=== PATIENT | female | born 1945 | race Caucasian/White ===

== ENCOUNTER 2017-01-21 14:21 | Inpatient (IN) | payer OTHER ==
[~2017-01-21] VITALS: Ht 162.6 cm; Wt 71.2 kg
[~2017-01-21 14:21] MED LIST: ATOR-22 PO; GLC500 PO; GLIM1TAB PO; HYDR12.56 PO; LISI40TA PO; METO-551 PO; MIRT15TA2 PO; VENL150C56 PO
[2017-01-21 15:11] LABS: URINE APPEARANCE CLEAR (CLEAR); URINE BILIRUBIN NEG (NEG); URINE COLOR YELLOW; URINE EPITHELIAL CELL AUTO >30 /lpf (0-5); URINE NITRITE NEG (NEG); UROBILINOGEN NEG (NEG)
[2017-01-21 15:12] LABS: MANUAL MICROSCOPIC REQUIRED? NO; REVIEW REQ? NO
[2017-01-21 15:29] LABS: BENZODIAZEPINE, URINE NEG (NEG); COCAINE,URINE NEG (NEG); PHENCYCLIDINE, URINE NEG (NEG)
--- NOTE | 2017-01-21 15:37 | EMERGENCY ROOM VISIT NOTE ---
History Report prepared by Bhavna: Maria De Jesus Wilks Under the Supervision of: Dr. Hilario Long D.O. First contact with patient: 14:53 Chief Complaint: MENTAL HEALTH EVALUATION Stated Complaint: DEPRESSION History of Present Illness The patient is a 71 year old female who presents to the Emergency Room with complaints of worsening depression starting 1.5 months ago ago. The patient has a history of depression. She has had inpatient care for her depression before. Her depression began worsening 1.5 months ago when she started having problems with diarrhea. She felt like she had to stay at home in case she had an accident. Her diarrhea has improved. For the past 3 days, she has not been taking any of her medications or eating. She states that she just does not feel like it. She has a history of hypertension, diabetes, depression, and high cholesterol for which she takes medications. Her therapist sent her here over concerns of inability to function. She denies any thoughts of hurting herself. She just feels depressed. She is sleeping 3.5-4 hours a night. She lives alone. She denies any history of thyroid problems. She has lost some weight. Source of History: patient, family Onset: 1.5 months ago Position: other (global) Quality: other (depression) Timing: worsening Associated Symptoms: + diarrhea Note: Pt reports not eating, not taking medications, weight loss. Pt denies thoughts of hurting herself. Review of Systems See HPI for pertinent positives & negatives. A total of 10 systems reviewed and were otherwise negative. Past Medical & Surgical Medical Problems: (1) Breast cancer (2) Depression (3) Depression with suicidal ideation (4) Diab Francesca Wo Compl, Type Ii Or Unspec Type, Not Uncntrld (5) HX OF BREAST MALIGNANCY (6) Hyperlipidemia Nec/Nos (7) HYPERTENSION NOS (8) Hypokalemia (9) Major depressive disorder (10) Major depressive disorder, recurrent episode, severe (11) Mood disorder (12) Overdose (13) Suicidal ideation (14) Suicidal ideation Surgical Problems: (1) Hx of hysterectomy (2) Unilateral radical mastectomy Family History Diabetes mellitus Social History Smoking Status: Never Smoker Alcohol Use: none Drug Use: none Housing Status: lives alone Current/Historical Medications Scheduled Atorvastatin (Lipitor), 20 MG PO QPM Glimepiride (Amaryl), 1 MG PO BID Hydrochlorothiazide (Hctz), 12.5 MG PO DAILY Lisinopril (Zestril), 40 MG PO QAM Metformin HCl (Metformin HCl), 1,000 MG PO BID Metoprolol Tartrate (Lopressor), 50 MG PO BID Mirtazapine Soltab (Remeron Soltab), 15 MG PO HS Venlafaxine Hcl (Effexor Extended Rel), 300 MG PO QAM Allergies Coded Allergies: No Known Allergies (Verified , 01/21/17) Physical Exam Vital Signs Date Time Temp Pulse Resp B/P (MAP) Pulse Ox O2 Delivery O2 Flow Rate FiO2 01/21/17 16:53 81 16 148/87 98 Room Air 01/21/17 15:45 79 18 99 Room Air 01/21/17 14:34 36.8 74 20 154/81 98 Room Air Physical Exam GENERAL: Patient is awake, alert, non anxious appearing. EYES: The conjunctivae are clear. The pupils are round and reactive. EARS, NOSE, MOUTH AND THROAT: The nose is without any evidence of any deformity. Mucous membranes are moist tongue is midline NECK: The neck is nontender and supple. RESPIRATORY: Normal respiratory effort is noted there is no evidence of wheezing rhonchi or rales CARDIOVASCULAR: Regular rate and rhythm noted there no murmurs rubs or gallops normal S1 normal S2 GASTROINTESTINAL: The abdomen is soft. Bowel sounds are present in all quadrants. Abdomen is nontender MUSCULOSKELETAL/EXTREMITIES: There is no evidence of gross deformity full range of motion is noted in the hips and shoulders SKIN: There is pedal edema bilaterally. NEUROLOGIC: Patient is awake alert and oriented x3 strength is symmetric patellar reflexes are 2+ bilaterally PSYCH: Awake and alert. Affect was flat. Makes poor eye contact. Currently denying any SI. Medical Decision & Procedures Laboratory Results 01/21/17 15:27 Red Blood Count 4.74, Mean Corpuscular Volume 92.2, Mean Corpuscular Hemoglobin 32.7, Mean Corpuscular Hemoglobin Concent 35.5, Mean Platelet Volume 10.4, Neutrophils (%) (Auto) 79.4, Lymphocytes (%) (Auto) 13.2, Monocytes (%) (Auto) 6.5, Eosinophils (%) (Auto) 0.5, Basophils (%) (Auto) 0.2, Neutrophils # (Auto) 7.67, Lymphocytes # (Auto) 1.28, Monocytes # (Auto) 0.63, Eosinophils # (Auto) 0.05, Basophils # (Auto) 0.02 01/21/17 15:27 Test 01/21/17 14:50 01/21/17 15:27 Urine Color YELLOW Urine Appearance CLEAR (CLEAR) Urine pH 7.0 (4.5-7.5) Urine Specific [place] 1.030 (1.000-1.030) Urine Protein NEG (NEG) Urine Glucose (UA) 3+ (NEG) Urine Ketones 1+ (NEG) Urine Occult Blood NEG (NEG) Urine Nitrite NEG (NEG) Urine Bilirubin NEG (NEG) Urine Urobilinogen NEG (NEG) Urine Leukocyte Esterase SMALL (NEG) Urine WBC (Auto) 5-10 /hpf (0-5) Urine RBC (Auto) 0-4 /hpf (0-4) Urine Hyaline Casts (Auto) 0 /lpf (0-5) Urine Epithelial Cells (Auto) >30 /lpf (0-5) Urine Bacteria (Auto) NEG (NEG) Urine Opiates Screen NEG (NEG) Urine Methadone, Qualitative NEG (NEG) Urine Barbiturates NEG (NEG) Urine Phencyclidine (PCP) Level NEG (NEG) Ur Amphetamine/Methamphetamine NEG (NEG) MDMA (Ecstasy) Screen NEG (NEG) Urine Benzodiazepines Screen NEG (NEG) Urine Cocaine Metabolite NEG (NEG) Urine Marijuana (THC) NEG (NEG) White Blood Count 9.67 K/uL (4.8-10.8) Red Blood Count 4.74 M/uL (4.2-5.4) Hemoglobin 15.5 g/dL (12.0-16.0) Hematocrit 43.7 % (37-47) Mean Corpuscular Volume 92.2 fL (80-100) Mean Corpuscular Hemoglobin 32.7 pg (25-34) Mean Corpuscular Hemoglobin Concent 35.5 g/dl (32-36) Platelet Count 258 K/uL (130-400) Mean Platelet Volume 10.4 fL (7.4-10.4) Neutrophils (%) (Auto) 79.4 % Lymphocytes (%) (Auto) 13.2 % Monocytes (%) (Auto) 6.5 % Eosinophils (%) (Auto) 0.5 % Basophils (%) (Auto) 0.2 % Neutrophils # (Auto) 7.67 K/uL (1.4-6.5) Lymphocytes # (Auto) 1.28 K/uL (1.2-3.4) Monocytes # (Auto) 0.63 K/uL (0.11-0.59) Eosinophils # (Auto) 0.05 K/uL (0-0.5) Basophils # (Auto) 0.02 K/uL (0-0.2) RDW Standard Deviation 44.2 fL (36.4-46.3) RDW Coefficient of Variation 13.2 % (11.5-14.5) Immature Granulocyte % (Auto) 0.2 % Immature Granulocyte # (Auto) 0.02 K/uL (0.00-0.02) Anion Gap 11.0 mmol/L (3-11) Est Creatinine Clear Calc Drug Dose 41.4 ml/min Estimated GFR () 52.8 Estimated GFR (Non- 45.6 BUN/Creatinine Ratio 16.8 (10-20) Calcium Level 9.6 mg/dl (8.5-10.1) Total Bilirubin 0.9 mg/dl (0.2-1) Direct Bilirubin 0.2 mg/dl (0-0.2) Aspartate Amino Transf (AST/SGOT) 24 U/L (15-37) Alanine Aminotransferase (ALT/SGPT) 33 U/L (12-78) Alkaline Phosphatase 63 U/L (45-117) Total Protein 7.8 gm/dl (6.4-8.2) Albumin 3.8 gm/dl (3.4-5.0) Beta-Hydroxybutyric Acid 3.78 mg/dL (0.2-2.81) Thyroid Stimulating Hormone (TSH) 2.130 uIu/ml (0.300-4.500) Free Thyroxine 1.15 ng/dl (0.80-1.60) Ethyl Alcohol mg/dL < 3.0 mg/dl (0-3) Laboratory results per my review. Medications Administered Medications (Trade) Dose Ordered Sig/Mary Route Start Time Stop Time Status Last Admin Dose Admin Atorvastatin Calcium (Lipitor Tab) 20 mg ONE STAT PO 01/21/17 16:18 01/21/17 16:21 DC 01/21/17 16:54 20 MG Metoprolol Tartrate (Lopressor Tab) 50 mg NOW STAT PO 01/21/17 16:18 01/21/17 16:21 DC 01/21/17 16:55 50 MG Glimepiride (Amaryl Tab) 1 mg NOW ONCE PO 01/21/17 16:30 01/21/17 16:31 DC 01/21/17 16:55 1 MG Metformin HCl (Glucophage Tab) 1,000 mg ONE STAT PO 01/21/17 16:18 01/21/17 16:21 DC 01/21/17 16:55 1,000 MG Potassium Chloride (Klor-Con M10) 10 meq NOW STAT PO 01/21/17 16:32 01/21/17 16:33 DC 01/21/17 16:55 10 MEQ ED Course 1459: The patient was evaluated in room A7. A complete history and physical examination were performed. 1618: Metformin HCl 1000 mg PO, Lopressor Tab 50 mg PO, Lipitor Tab 20 mg PO. 1630: Amaryl Tab 1 mg PO. 1632: Potassium Chloride 10 meq PO. 190: The patient has been accepted to [address] [place] [address]. Medical Decision Prior records/ancillary studies reviewed. Triage Nursing notes reviewed. Additional history obtained from son. The patient's history was concerning for possible psychiatric disturbance. Differential diagnosis: Etiologies such as mood disorder, infection, hypoglycemia, electrolyte abnormalities, cardiac sources, intracerebral event, toxicologic, neurologic, as well as others were entertained. The patient is a 71-year-old female who presented to emergency department for a mental health evaluation. The patient has had similar symptoms the past but appears very withdrawn. She has stopped taking her medications. She's been having very significant depression symptoms. She was seen in our facility recently for similar complaints and did not meet criteria for inpatient management. She follow-up with her primary therapist and was sent to the emergency department today by the therapist for worsening of symptoms. The patient was medically cleared in the emergency department. She was treated with her outpatient medications. She was evaluated by the emergency Department mental health case assembler and then seen by [address] [place] [address]. She was felt to be a good candidate for a [address] [place] [address] admission. Medication Reconcilliation Current Medication List: was personally reviewed by me Blood Pressure Screening Patient's blood pressure: Elevated blood pressure Blood pressure disposition: Elevated BP felt to be situational (medication noncompliance) Impression Primary Impression: Depression Additional Impressions: Hyperglycemia Noncompliance with medications Scribe Attestation The scribe's documentation has been prepared under my direction and personally reviewed by me in its entirety. I confirm that the note above accurately reflects all work, treatment, procedures, and medical decision making performed by me. Departure Information Dispostion Mental Health Acute Care Referrals Richardson Mcmillan M.D. (PCP) Patient Instructions My [facility] Problem Qualifiers
[2017-01-21 15:44] LABS: BASO % 0.2 %; BASO ABS # 0.02 K/uL (0-0.2); COMPLETE YES; EOS % 0.5 %; HEMATOCRIT 43.7 % (37-47); IG% 0.2 %; LYMPH % 13.2 %; LYMPH ABS # 1.28 K/uL (1.2-3.4); MEAN CELL VOLUME 92.2 fL (80-100); MEAN CORPUSCULAR HEMOGLOBIN 32.7 pg (25-34); MEAN CORPUSCULAR HGB CONC 35.5 g/dl (32-36); MEAN PLATELET VOLUME 10.4 fL (7.4-10.4); MONO % 6.5 %; NEUT % 79.4 %; PLATELET COUNT 258 K/uL (130-400); RED BLOOD COUNT 4.74 M/uL (4.2-5.4); WHITE BLOOD COUNT 9.67 K/uL (4.8-10.8)
[2017-01-21 16:02] LABS: BUN/CREATININE RATIO 16.8 (10-20); CALCIUM 9.6 mg/dl (8.5-10.1); CREATININE 1.19 mg/dl (0.60-1.20)
[2017-01-21 16:13] LABS: BETA-HYDROXYBUTYRATE 3.78 mg/dL (0.2-2.81); THYROID STIMULATING HORMONE 2.13 uIu/ml (0.300-4.500)
[2017-01-21] MEDS ORDERED: ATORVASTATIN 20 MG TAB PO STA (16:18)
[2017-01-21] MEDS ORDERED: HYDROCHLOROTHIAZIDE 25 MG TAB PO STA (16:18)
[2017-01-21] MEDS ORDERED: LISINOPRIL 20 MG TAB PO STA (16:18)
[2017-01-21] MEDS ORDERED: METFORMIN HCL 500 MG TAB PO STA (16:18)
[2017-01-21] MEDS ORDERED: VENLAFAXINE HCL XR 150 MG CAPXR PO STA (16:18)
[2017-01-21] MEDS ORDERED: METOPROLOL TARTRATE 50 MG TAB PO STA (16:18)
[2017-01-21] MEDS ORDERED: GLIMEPIRIDE 2 MG TAB PO ONE (16:30)
[2017-01-21] MEDS ORDERED: POTASSIUM CHLORIDE 10 MEQ TABCR PO STA (16:32)
[2017-01-21] MEDS ORDERED: ACETAMINOPHEN 325 MG TAB PO PRN (19:00)
[2017-01-21] MEDS ORDERED: SODIUM CHLORIDE 0.65% NA SOLN 45 ML (OCEAN) PRN (19:00)
[2017-01-21] MEDS ORDERED: ALUMINUM/MAGNESIUM SUSP 30 ML UDC PO PRN (19:00)
[2017-01-21] MEDS ORDERED: MAGNESIUM HYDROXIDE SUSP 30 ML UDC PO PRN (19:00)
[2017-01-21] MEDS ORDERED: hydrOXYzine HCL 25 MG TAB PO PRN ×2 (19:00)
[2017-01-21 19:07] VITALS: O2SAT 98
[2017-01-21 19:49] VITALS: BP 141/89; PULSE 81; TEMP 36.7; BMI 26.9
[2017-01-21] MEDS: MIRTAZAPINE SOLTAB 15 MG PO SCH (21:39)
[2017-01-21] MEDS: ATORVASTATIN 20 MG TAB PO SCH (21:42)
[2017-01-21] MEDS: METOPROLOL TARTRATE 50 MG TAB PO SCH (21:42)
[2017-01-21 21:47] VITALS: BP 149/88; PULSE 81
[2017-01-22 07:04] VITALS: BP_SYST 111; BP_SYST 138; BP_DIAS 73; BP_DIAS 90; PULSE 89; PULSE 94; TEMP 36.5
[2017-01-22] MEDS: VENLAFAXINE HCL XR 150 MG CAPXR PO SCH (08:58)
[2017-01-22] MEDS: GLIMEPIRIDE 2 MG TAB PO SCH ×2 (08:58→17:33)
[2017-01-22] MEDS: METFORMIN HCL 500 MG TAB PO SCH ×2 (08:59→17:32)
[2017-01-22] MEDS: HYDROCHLOROTHIAZIDE 25 MG TAB PO SCH (08:59)
[2017-01-22] MEDS: METOPROLOL TARTRATE 50 MG TAB PO SCH ×2 (08:59→21:26)
[2017-01-22] MEDS: LISINOPRIL 40 MG TAB PO SCH (09:00)
[2017-01-22] MEDS: BISMUTH SUBSALICYLATE PER ML OMNICELL CHARGE PO PRN ×2 (10:00→19:34)
[2017-01-22 12:11] VITALS: BP 143/84; PULSE 74; TEMP 36.6
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
[2017-01-22] MEDS ORDERED: ARIPIprazole TAB 5 MG TAB PO ONE (12:30)
[2017-01-22 15:40] VITALS: BP 122/88; PULSE 90
[2017-01-22 16:22] VITALS: Ht 162.6 cm; Wt 71.2 kg
[2017-01-22 21:26] VITALS: BP 125/79; PULSE 93
[2017-01-22] MEDS: MIRTAZAPINE SOLTAB 15 MG PO SCH (21:26)
[2017-01-22] MEDS: ATORVASTATIN 20 MG TAB PO SCH (21:26)
[2017-01-23 06:45] VITALS: BP_SYST 106; BP_SYST 118; BP_DIAS 69; BP_DIAS 77; PULSE 71; PULSE 74; TEMP 36.7
[2017-01-23 08:16] LABS: POTASSIUM 2.9 mmol/L (3.5-5.1)
[2017-01-23 08:22] LABS: CHOLESTEROL/HDL RATIO 2.7
[2017-01-23] MEDS: ARIPIprazole TAB 5 MG TAB PO SCH (08:38)
[2017-01-23] MEDS: VENLAFAXINE HCL XR 150 MG CAPXR PO SCH (08:39)
[2017-01-23] MEDS: GLIMEPIRIDE 2 MG TAB PO SCH ×2 (08:39→17:24)
[2017-01-23] MEDS: METFORMIN HCL 500 MG TAB PO SCH ×2 (08:40→17:24)
[2017-01-23] MEDS: HYDROCHLOROTHIAZIDE 25 MG TAB PO SCH ×2 (08:40→09:04)
[2017-01-23] MEDS: LISINOPRIL 40 MG TAB PO SCH ×2 (08:42→09:03)
[2017-01-23] MEDS: METOPROLOL TARTRATE 50 MG TAB PO SCH ×2 (08:42→21:20)
[2017-01-23 08:48] VITALS: BP 125/82; PULSE 74
[2017-01-23] MEDS ORDERED: POTASSIUM CHLORIDE 20 MEQ TABCR PO ONE (12:15)
--- NOTE | 2017-01-23 13:37 | Psychiatric Progress Notes ---
Progress Note Date of Service Jan 23, 2017. Interval History 71-year-old woman with a long history of depression and, in deterioration for the last several months, now unable to function outside of a structured environment. She has resisted the idea that she was depressed, preferring to see herself as bored, but now recognizes that having not showered taking her meds, or eat for 3 days clearly indicates depression. Chief Complaint "OK". Subjective Patient was seen & assessed interval progress reviewed with Treatment Team. She has just come from a phone meeting with her son Reid, during which they discussed her depression, her inability to get herself out of the house when depressed, and her relationship with her daughter Tracey. Monserrat thinks that she will try to see if there is a [employer] office in [place] to inquire about volunteering. She started Abilify yesterday and denies any side effects. She believes that her relationship with her daughter is a big part of her depression saying that it hurts that she isn't allowed to go visit Tracey at her home ([place]). She wants to be closer with her, but Tracey puts up barriers and has not sought treatment for her own issues. Monserrat recognizes this and knows that she treats other family members the same, but that its especially difficult for her as the mother. Her son Reid is very warm and inviting, but Monserrat says that Tracey has always accused her of treating Reid differently, better, which Monserrat denies. They are still hopeful that Reid can get in touch with Monserrat and invite her in for a family meeting as well. Informed patient of low K, and intent to supplement. She denies SI, and is making every effort to stay out of her room and participate in programming. Review of Systems Constitutional: No fever, No chills, No sweats, No weight loss, No weakness, No fatigue, No problem reported ENT: No hearing loss, No unusual epistaxis, No nasal symptoms, No sore throat, No tinnitus, No dental problems, No trouble swallowing, No problem reported Respiratory: + problem reported (rhinorrhea when eating) Cardiovascular: No chest pain, No orthopnea, No PND, No edema, No claudication , No palpitations, No problem reported Abdomen: No pain, No nausea, No vomiting, No diarrhea, No constipation, No GI bleeding, No problem reported Musculoskeletal: No joint pain, No muscle pain, No swelling, No calf pain, No problem reported Neurologic: No memory loss, No paralysis, No weakness, No numbness/tingling, No vertigo, No balance problems, No problem reported Psychiatric: + depression symptoms Integumentary: No rash, No itch, No new/changing skin lesions, No color change , No bleeding, No problem reported Sleep Information Total Hours of Sleep: 6.00 Meal Information Percent of Breakfast Consumed: 100 Percent of Lunch Consumed: 80 Percent of Dinner Consumed: 100 Mental Status Exam During interview pt is: alert and oriented, cooperative Appearance: appropriately dressed, appropriately groomed Eye contact is: good Motor behavior is: steady gait & station, no abnormal motor movements Speech: normal in rate, rhythm & volume Affect: depressed, blunted Mood is: depressed Thought process: goal directed Thought content: reality based without delusions Suicidal thought are: denied Homicidal thoughts are: denied Hallucinations: denies auditory, denies visual Cognition: memory grossly intact, attention grossly intact, language grossly intact Intelligence estimated to be: average Insight: impaired Judgement: impaired Impression Although not acutely suicidal, she has deteriorated to the point of being unable to function with out the structure of the inpatient unit. Is tolerating the addition of abilify and will hopefully increase to 5 mg. over the weekend. We will work toward a family meeting with daughter Tracey, as this is a large part of patient's sadness. In view of previous serious and premeditated overdoses, will recommend ongoing stay until we see significant improvement to mood, motivation and anhedonia. Plan (1) Major depressive disorder, recurrent episode, severe 01/22 - Continue Effexor XR 300 mg daily - Continue Remeron 15 mg at bedtime - Start Abilify 2.5 mg daily - Family meeting with children - Recommend therapy post discharge - Encourage participation in group and individual counseling - Every 15 minute checks for safety - FLP and FBS for monitoring on atypicals (2) Hypokalemia 01/22 - Patient has not been eating and potassium low at 3.0 and was given potassium in the ED. Will repeat potassium tomorrow and may need chronic supplementation in view of hydrochlorothiazide therapy 01/23 - K 2.9 today - Give KCl 40 meq now and 20 meq daily - Repeat K on Thursday - EKG (3) Hypertension 01/22 - monitor BP's - Continue home antihypertensives (4) Hyperglycemia 01/22 - Continue home dosing of metformin and glimepiride - BSG's daily Discharge / Aftercare Planning Primary Care Physician: Name: Dr. Mcmillan Psychiatrist: Name: [facility] Therapist: Name: Nydia GUADARRAMA, [facility] Visit Code E&M Code: 26594 Inventory Assets Strengths: Willingness to engage in treatment, support from family Needs: Medication compliance Risk Factors Assessment : Yes /single/: Yes Higher / Fall in social status: No Health problems: Yes Mental Health Diagnoses: Yes Substance use disorders: No Previous attempt: Yes Previous attempt;highly lethal: Yes Previous attempt; planned: Yes Family history of suicide: No Previous psychiatric stay: Yes Hopelessness: No Smoker: No Protective Factors Assessment Cheondoism beliefs: Yes : No Responsible for young children: No Employed: No Stable relationships: No Supportive family: Yes Good rapport with provider: Yes Data Vital Signs Last 24 Hrs: Date Time Temp Pulse Resp B/P (MAP) Pulse Ox O2 Delivery O2 Flow Rate FiO2 01/23/17 08:48 74 125/82 01/23/17 06:45 36.7 71 16 106/69 74 118/77 01/22/17 21:26 93 18 125/79 01/22/17 15:40 90 122/88 Meds Administered Last 24 Hrs: Meds Administered (Past 24Hrs) Medications (Trade) Dose Ordered Sig/Mary Route Start Time Stop Time Status Last Admin Dose Admin Atorvastatin Calcium (Lipitor Tab) 20 mg ONE STAT PO 01/21/17 16:18 01/21/17 16:21 DC 01/21/17 16:54 20 MG Metoprolol Tartrate (Lopressor Tab) 50 mg NOW STAT PO 01/21/17 16:18 01/21/17 16:21 DC 01/21/17 16:55 50 MG Glimepiride (Amaryl Tab) 1 mg NOW ONCE PO 01/21/17 16:30 01/21/17 16:31 DC 01/21/17 16:55 1 MG Metformin HCl (Glucophage Tab) 1,000 mg ONE STAT PO 01/21/17 16:18 01/21/17 16:21 DC 01/21/17 16:55 1,000 MG Potassium Chloride (Klor-Con M10) 10 meq NOW STAT PO 01/21/17 16:32 01/21/17 16:33 DC 01/21/17 16:55 10 MEQ Bismuth Subsalicylate (Kaopectate Liqd) 15 ml PRN PRN PO 01/21/17 19:00 02/20/17 18:59 01/22/17 19:34 15 ML Atorvastatin Calcium (Lipitor Tab) 20 mg QPM PO 01/21/17 21:00 02/20/17 20:59 01/22/17 21:26 20 MG Glimepiride (Amaryl Tab) 1 mg BIDM PO 01/22/17 09:00 02/21/17 08:59 01/23/17 08:39 1 MG Hydrochlorothiazide (Hydrochlorothiazide Tab) 12.5 mg DAILY PO 01/22/17 09:00 02/21/17 08:59 01/23/17 09:04 12.5 MG Lisinopril (Zestril Tab) 40 mg QAM PO 01/22/17 09:00 02/21/17 08:59 01/23/17 09:03 40 MG Metformin HCl (Glucophage Tab) 1,000 mg BIDM PO 01/22/17 09:00 02/21/17 08:59 01/23/17 08:40 1,000 MG Metoprolol Tartrate (Lopressor Tab) 50 mg BID PO 01/21/17 21:00 02/20/17 20:59 01/23/17 08:42 50 MG Venlafaxine HCl (effeXOR EXTENDED REL CAP) 300 mg QAM PO 01/22/17 09:00 02/21/17 08:59 01/23/17 08:39 300 MG Mirtazapine (Remeron Solutab) 15 mg HS PO 01/21/17 21:00 02/20/17 20:59 01/22/17 21:26 15 MG Aripiprazole (Abilify Tab) 2.5 mg QAM PO 01/23/17 09:00 02/22/17 08:59 01/23/17 08:38 2.5 MG Aripiprazole (Abilify Tab) 2.5 mg 1230 ONCE PO 01/22/17 12:30 01/22/17 12:31 DC 01/22/17 12:46 2.5 MG Potassium Chloride (Klor-Con Tab) 40 meq 1215 ONCE PO 01/23/17 12:15 01/23/17 12:16 DC 01/23/17 13:19 40 MEQ Lab Results Last 24 Hrs: Last 24 Hours Test 01/22/17 16:56 01/22/17 20:38 01/23/17 06:59 01/23/17 08:05 Bedside Glucose 194 mg/dl 194 mg/dl 151 mg/dl Potassium Level 2.9 mmol/L Fasting Glucose 150 mg/dl Triglycerides Level 167 mg/dl Cholesterol Level 111 mg/dl HDL Cholesterol 41 mg/dl LDL Cholesterol, Calculated 37 mg/dl VLDL Cholesterol, Calculated 33 mg/dl Cholesterol/HDL Ratio 2.7
[2017-01-23] MEDS: BISMUTH SUBSALICYLATE PER ML OMNICELL CHARGE PO PRN (15:42)
[2017-01-23] MEDS: ATORVASTATIN 20 MG TAB PO SCH (21:20)
[2017-01-23] MEDS: MIRTAZAPINE SOLTAB 15 MG PO SCH (21:20)
[2017-01-23 22:14] VITALS: BP 125/79; PULSE 88
[2017-01-24 06:42] VITALS: BP_SYST 101; BP_SYST 134; BP_DIAS 67; BP_DIAS 74; PULSE 75; PULSE 77; TEMP 36.6
[2017-01-24] MEDS: VENLAFAXINE HCL XR 150 MG CAPXR PO SCH (09:00)
[2017-01-24] MEDS: METOPROLOL TARTRATE 50 MG TAB PO SCH ×2 (09:00→21:55)
[2017-01-24] MEDS: ARIPIprazole TAB 5 MG TAB PO SCH (09:00)
[2017-01-24] MEDS: GLIMEPIRIDE 2 MG TAB PO SCH ×2 (09:00→18:03)
[2017-01-24] MEDS: POTASSIUM CHLORIDE 20 MEQ TABCR PO SCH (09:01)
[2017-01-24] MEDS: METFORMIN HCL 500 MG TAB PO SCH ×2 (09:01→18:02)
[2017-01-24] MEDS: HYDROCHLOROTHIAZIDE 25 MG TAB PO SCH (09:01)
[2017-01-24] MEDS: LISINOPRIL 40 MG TAB PO SCH (09:01)
--- NOTE | 2017-01-24 13:19 | Psychiatric Progress Notes ---
Progress Note Date of Service Jan 24, 2017. Interval History 71-year-old woman with a long history of depression and, in deterioration for the last several months, now unable to function outside of a structured environment. She has resisted the idea that she was depressed, preferring to see herself as bored, but now recognizes that having not showered taking her meds, or eat for 3 days clearly indicates depression. Chief Complaint "Doing better". Subjective Patient was seen & assessed interval progress reviewed with Nursing. Staff report she is improving, performs the ADLs independently, and treatment. The patient states that her mood is "doing better, more alert." She denies any side effects to aripiprazole. She rates her mood as 6 out of 10, and her goal is to keep going to groups and talking about her stressors. Sleep and appetite are both improving, she is hopeful to be able to have a meeting with her daughter on Thursday. She denies suicidal thoughts. Review of Systems Dizziness that has been going on for about a week, typically occurs when she stands up from lying or seated positions. Sleep Information Total Hours of Sleep: 6.75 Meal Information Percent of Breakfast Consumed: 95 Percent of Lunch Consumed: 100 Percent of Dinner Consumed: 65 Mental Status Exam During interview pt is: alert and oriented, cooperative Appearance: appropriately dressed, appropriately groomed Eye contact is: good Motor behavior is: steady gait & station, no abnormal motor movements Speech: normal in rate, rhythm & volume Affect: depressed, other (but reactive and appropriate) Mood is: other ("better") Thought process: goal directed Thought content: reality based without delusions Suicidal thought are: denied Homicidal thoughts are: denied Hallucinations: denies auditory, denies visual Cognition: memory grossly intact, attention grossly intact, language grossly intact Intelligence estimated to be: average Insight: impaired Judgement: impaired Impression Although not acutely suicidal, she has deteriorated to the point of being unable to function with out the structure of the inpatient unit. She tolerating the addition of Abilify and will increase to 5 mg daily. We will work toward a family meeting with daughter Tracey, as this is a large part of patient's sadness. In view of previous serious and premeditated overdoses, will recommend ongoing stay until we see significant improvement to mood, motivation and anhedonia. Plan (1) Major depressive disorder, recurrent episode, severe 01/22 - Continue Effexor XR 300 mg daily - Continue Remeron 15 mg at bedtime - Start Abilify 2.5 mg daily - Family meeting with children - Recommend therapy post discharge - Encourage participation in group and individual counseling - Every 15 minute checks for safety - FLP and FBS for monitoring on atypicals 01/24 - Increase aripiprazole to 5 mg daily. - Reviewed fasting labs: Glucose elevated at 150, and triglycerides of 167; remainder of FLP was normal. (2) Hypokalemia 01/22 - Patient has not been eating and potassium low at 3.0 and was given potassium in the ED. Will repeat potassium tomorrow and may need chronic supplementation in view of hydrochlorothiazide therapy 01/23 - K 2.9 today - Give KCl 40 meq now and 20 meq daily - Repeat K on Thursday - EKG (3) Hypertension 01/22 - monitor BP's - Continue home antihypertensives (4) Hyperglycemia 01/22 - Continue home dosing of metformin and glimepiride - BSG's daily Discharge / Aftercare Planning Primary Care Physician: Name: Dr. Mcmillan Psychiatrist: Name: Kamla KUHN-[facility] Therapist: Name: Nydia GUADARRAMA, [employer] Visit Code E&M Code: 46487 Inventory Assets Strengths: Willingness to engage in treatment, support from family Needs: Medication compliance Risk Factors Assessment : Yes /single/: Yes Higher / Fall in social status: No Health problems: Yes Mental Health Diagnoses: Yes Substance use disorders: No Previous attempt: Yes Previous attempt;highly lethal: Yes Previous attempt; planned: Yes Family history of suicide: No Previous psychiatric stay: Yes Hopelessness: No Smoker: No Protective Factors Assessment Jainism beliefs: Yes : No Responsible for young children: No Employed: No Stable relationships: No Supportive family: Yes Good rapport with provider: Yes Data Vital Signs Last 24 Hrs: Date Time Temp Pulse Resp B/P (MAP) Pulse Ox O2 Delivery O2 Flow Rate FiO2 01/24/17 06:42 36.6 75 18 101/67 77 134/74 01/23/17 22:14 88 18 125/79 Meds Administered Last 24 Hrs: Meds Administered (Past 24Hrs) Medications (Trade) Dose Ordered Sig/Mary Route Start Time Stop Time Status Last Admin Dose Admin Aripiprazole (Abilify Tab) 2.5 mg QAM PO 01/23/17 09:00 02/22/17 08:59 01/24/17 09:00 2.5 MG Potassium Chloride (Klor-Con Tab) 20 meq QAM PO 01/24/17 09:00 02/23/17 08:59 01/24/17 09:01 20 MEQ Potassium Chloride (Klor-Con Tab) 40 meq 1215 ONCE PO 01/23/17 12:15 01/23/17 12:16 DC 01/23/17 13:19 40 MEQ Lab Results Last 24 Hrs: Last 24 Hours Test 01/23/17 17:15 01/23/17 21:14 01/24/17 07:55 01/24/17 12:12 Bedside Glucose 112 mg/dl 106 mg/dl 169 mg/dl 213 mg/dl
[2017-01-24 14:23] VITALS: BP 116/75; PULSE 80
[2017-01-24 21:31] VITALS: BP 122/80; PULSE 79
[2017-01-24] MEDS: MIRTAZAPINE TAB 15 MG TAB PO SCH (21:55)
[2017-01-24] MEDS: ATORVASTATIN 20 MG TAB PO SCH (21:55)
[2017-01-25 06:49] VITALS: BP_SYST 122; BP_SYST 140; BP_DIAS 75; BP_DIAS 78; PULSE 64; PULSE 74; TEMP 36
--- NOTE | 2017-01-25 08:00 | Psychiatric Progress Notes ---
Progress Note Date of Service Jan 25, 2017. Interval History 71-year-old woman with a long history of depression and, in deterioration for the last several months, now unable to function outside of a structured environment. She has resisted the idea that she was depressed, preferring to see herself as bored, but now recognizes that having not showered taking her meds, or eat for 3 days clearly indicates depression. Chief Complaint "Getting better". Subjective Patient was seen & assessed interval progress reviewed with Nursing. Staff report she has not been able to get in touch with her daughter, as she wants to have a meeting with her Thursday. She is attending to ADLs and affect is improving. Today she reports that mood is improving, rates it a 7 out of 10, and had a good visit with her sister and friend. She was able to talk to her daughter last night, and she has to be out of town Thu - Thu for training, so is not available for a meeting. She is planning to visit today, and patient was hoping they could have a meeting to talk about "the times when we clash, don't get along or agree on things." She says her daughter "thinks she needs to make all the decisions for me," for example when they went on trip, her daughter made all the arrangements based on what she wanted to do, without asking Monserrat. She has had a hard time talking to her daughter about it, "it has to be her way or the highway." She denies side effects to Abilify. She is trying to think of ways to get out of the house more and not isolate once she goes home. She is thinking of contacting the [employer] to look into volunteer positions. 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 Sleep Information Total Hours of Sleep: 6.25 Meal Information Percent of Breakfast Consumed: 95 Percent of Lunch Consumed: 90 Percent of Dinner Consumed: 80 Mental Status Exam During interview pt is: alert and oriented, cooperative Appearance: appropriately dressed, appropriately groomed Eye contact is: good Motor behavior is: steady gait & station, no abnormal motor movements Speech: normal in rate, rhythm & volume Affect: depressed (but reactive, appropriate) Mood is: other ("better") Thought process: goal directed Thought content: reality based without delusions Suicidal thought are: denied Homicidal thoughts are: denied Hallucinations: denies auditory, denies visual Cognition: memory grossly intact, attention grossly intact, language grossly intact Intelligence estimated to be: average Insight: impaired Judgement: impaired Impression Although not acutely suicidal, she has deteriorated to the point of being unable to function with out the structure of the inpatient unit. She is tolerating the addition of Abilify. We have recommended a family meeting with daughter Tracey, as this is a large part of patient's sadness, but she will be unavailable Thu-Thu due to work, so will see if staff are available today to meet with patient and her daughter when she visits. In view of previous serious and premeditated overdoses, will recommend ongoing stay until we see significant improvement to mood, motivation and anhedonia. Plan (1) Major depressive disorder, recurrent episode, severe 01/22 - Continue Effexor XR 300 mg daily - Continue Remeron 15 mg at bedtime - Start Abilify 2.5 mg daily - Family meeting with children - Recommend therapy post discharge - Encourage participation in group and individual counseling - Every 15 minute checks for safety - FLP and FBS for monitoring on atypicals 01/24 - Increase aripiprazole to 5 mg daily. - Reviewed fasting labs: Glucose elevated at 150, and triglycerides of 167; remainder of FLP was normal. 01/25 - Continue current meds - Daughter visiting today, will see if staff available to do family meeting, as daughter will be out of town for work this week and unavailable. - Encourage continued work on plan to increase socialization (volunteering) at home (2) Hypokalemia 01/22 - Patient has not been eating and potassium low at 3.0 and was given potassium in the ED. Will repeat potassium tomorrow and may need chronic supplementation in view of hydrochlorothiazide therapy 01/23 - K 2.9 today - Give KCl 40 meq now and 20 meq daily - Repeat K on Thursday - EKG - NSR 01/24 - K 3.6 (3) Hypertension 01/22 - monitor BP's - Continue home antihypertensives (4) Hyperglycemia 01/22 - Continue home dosing of metformin and glimepiride - BSG's daily Discharge / Aftercare Planning Primary Care Physician: Name: Dr. Mcmillan Psychiatrist: Name: Kamla KUHN-[employer] [facility] Therapist: Name: Nydia Dai THIERRY, [employer] Visit Code E&M Code: 22383 Inventory Assets Strengths: Willingness to engage in treatment, support from family Needs: Medication compliance Risk Factors Assessment : Yes /single/: Yes Higher / Fall in social status: No Health problems: Yes Mental Health Diagnoses: Yes Substance use disorders: No Previous attempt: Yes Previous attempt;highly lethal: Yes Previous attempt; planned: Yes Family history of suicide: No Previous psychiatric stay: Yes Hopelessness: No Smoker: No Protective Factors Assessment Adventist beliefs: Yes : No Responsible for young children: No Employed: No Stable relationships: No Supportive family: Yes Good rapport with provider: Yes Data Vital Signs Last 24 Hrs: Date Time Temp Pulse Resp B/P (MAP) Pulse Ox O2 Delivery O2 Flow Rate FiO2 01/25/17 06:49 36.0 64 16 122/78 74 140/75 01/24/17 21:31 79 18 122/80 01/24/17 14:23 80 14 116/75 Meds Administered Last 24 Hrs: Meds Administered (Past 24Hrs) Medications (Trade) Dose Ordered Sig/Mary Route Start Time Stop Time Status Last Admin Dose Admin Aripiprazole (Abilify Tab) 2.5 mg QAM PO 01/23/17 09:00 01/24/17 13:18 DC 01/24/17 09:00 2.5 MG Potassium Chloride (Klor-Con Tab) 20 meq QAM PO 01/24/17 09:00 02/23/17 08:59 01/24/17 09:01 20 MEQ Potassium Chloride (Klor-Con Tab) 40 meq 1215 ONCE PO 01/23/17 12:15 01/23/17 12:16 DC 01/23/17 13:19 40 MEQ Mirtazapine (Remeron Tab) 15 mg HS PO 01/24/17 22:00 02/23/17 21:59 01/24/17 21:55 15 MG Lab Results Last 24 Hrs: Last 24 Hours Test 01/24/17 12:12 01/24/17 14:16 01/24/17 17:24 01/24/17 21:08 Bedside Glucose 213 mg/dl 126 mg/dl 88 mg/dl 98 mg/dl
[2017-01-25] MEDS: METFORMIN HCL 500 MG TAB PO SCH ×2 (08:47→18:04)
[2017-01-25] MEDS: VENLAFAXINE HCL XR 150 MG CAPXR PO SCH (08:47)
[2017-01-25] MEDS: GLIMEPIRIDE 2 MG TAB PO SCH ×2 (08:47→18:05)
[2017-01-25] MEDS: ARIPIprazole TAB 5 MG TAB PO SCH (08:47)
[2017-01-25] MEDS: LISINOPRIL 40 MG TAB PO SCH (08:48)
[2017-01-25] MEDS: POTASSIUM CHLORIDE 20 MEQ TABCR PO SCH (08:48)
[2017-01-25] MEDS: HYDROCHLOROTHIAZIDE 25 MG TAB PO SCH (08:48)
[2017-01-25] MEDS: METOPROLOL TARTRATE 50 MG TAB PO SCH ×2 (08:48→21:17)
[2017-01-25 21:16] VITALS: BP 147/83; PULSE 83
[2017-01-25] MEDS: MIRTAZAPINE TAB 15 MG TAB PO SCH (21:17)
[2017-01-25] MEDS: ATORVASTATIN 20 MG TAB PO SCH (21:17)
[2017-01-26 07:09] VITALS: BP_SYST 122; BP_SYST 137; BP_DIAS 73; BP_DIAS 79; PULSE 70; PULSE 82; TEMP 36.9
[2017-01-26] MEDS: ARIPIprazole TAB 5 MG TAB PO SCH (08:23)
[2017-01-26] MEDS: VENLAFAXINE HCL XR 150 MG CAPXR PO SCH (08:24)
[2017-01-26] MEDS: GLIMEPIRIDE 2 MG TAB PO SCH ×2 (08:24→18:23)
[2017-01-26] MEDS: METOPROLOL TARTRATE 50 MG TAB PO SCH ×2 (08:25→21:20)
[2017-01-26] MEDS: METFORMIN HCL 500 MG TAB PO SCH ×2 (08:25→18:24)
[2017-01-26] MEDS: POTASSIUM CHLORIDE 20 MEQ TABCR PO SCH (08:25)
[2017-01-26] MEDS: HYDROCHLOROTHIAZIDE 25 MG TAB PO SCH (08:25)
[2017-01-26] MEDS: LISINOPRIL 40 MG TAB PO SCH (08:25)
--- NOTE | 2017-01-26 14:32 | Psychiatric Progress Notes ---
Progress Note Date of Service Jan 26, 2017. Interval History 71-year-old woman with a long history of depression and, in deterioration for the last several months, now unable to function outside of a structured environment. She has resisted the idea that she was depressed, preferring to see herself as bored, but now recognizes that having not showered taking her meds, or eat for 3 days clearly indicates depression. Chief Complaint "Going okay". Subjective Patient was seen & assessed interval progress reviewed with Treatment Team. Staff report she's going to groups and talking about her stressors. She had a meeting with her son and daughter yesterday, but still feels uncertain about how she can improve her relationship with her daughter. Her son offered to help her get into some type of exercise class, and printed out information from the [facility], but she feels self conscious. 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 Sleep and appetite are improving, and she denies SI. Sleep Information Total Hours of Sleep: 8.00 Meal Information Percent of Breakfast Consumed: 100 Percent of Lunch Consumed: 50 Percent of Dinner Consumed: 100 Mental Status Exam During interview pt is: alert and oriented, cooperative Appearance: appropriately dressed, appropriately groomed Eye contact is: good Motor behavior is: steady gait & station, no abnormal motor movements Speech: normal in rate, rhythm & volume Affect: depressed (but reactive, appropriate) Mood is: other ("better") Thought process: goal directed Thought content: reality based without delusions Suicidal thought are: denied Homicidal thoughts are: denied Hallucinations: denies auditory, denies visual Cognition: memory grossly intact, attention grossly intact, language grossly intact Intelligence estimated to be: average Insight: impaired Judgement: impaired Impression Although not acutely suicidal, she has deteriorated to the point of being unable to function with out the structure of the inpatient unit. She is tolerating the addition of Abilify. We have recommended a family meeting with daughter Tracey, as this is a large part of patient's sadness, but she will be unavailable Thu-Thu due to work, so will see if staff are available today to meet with patient and her daughter when she visits. In view of previous serious and premeditated overdoses, will recommend ongoing stay until we see significant improvement to mood, motivation and anhedonia. Plan (1) Major depressive disorder, recurrent episode, severe 01/22 - Continue Effexor XR 300 mg daily - Continue Remeron 15 mg at bedtime - Start Abilify 2.5 mg daily - Family meeting with children - Recommend therapy post discharge - Encourage participation in group and individual counseling - Every 15 minute checks for safety - FLP and FBS for monitoring on atypicals 01/24 - Increase aripiprazole to 5 mg daily. - Reviewed fasting labs: Glucose elevated at 150, and triglycerides of 167; remainder of FLP was normal. 01/25 - Continue current meds - Daughter visiting today, will see if staff available to do family meeting, as daughter will be out of town for work this week and unavailable. - Encourage continued work on plan to increase socialization (volunteering) at home (2) Hypokalemia 01/22 - Patient has not been eating and potassium low at 3.0 and was given potassium in the ED. Will repeat potassium tomorrow and may need chronic supplementation in view of hydrochlorothiazide therapy 01/23 - K 2.9 today - Give KCl 40 meq now and 20 meq daily - Repeat K on Thursday - EKG - NSR 01/24 - K 3.6 (3) Hypertension 01/22 - monitor BP's - Continue home antihypertensives (4) Hyperglycemia 01/22 - Continue home dosing of metformin and glimepiride - BSG's daily Discharge / Aftercare Planning Primary Care Physician: Name: Dr. Mcmillan Psychiatrist: Name: Kamla KUHN-[facility] Therapist: Name: Nydia GUADARRAMA, [email or web address] Visit Code E&M Code: 64648 Inventory Assets Strengths: Willingness to engage in treatment, support from family Needs: Medication compliance Risk Factors Assessment : Yes /single/: Yes Higher / Fall in social status: No Access to guns: No Health problems: Yes Mental Health Diagnoses: Yes Substance use disorders: No Previous attempt: Yes Previous attempt;highly lethal: Yes Previous attempt; planned: Yes Family history of suicide: No Previous psychiatric stay: Yes Hopelessness: No Smoker: No Protective Factors Assessment Denominational beliefs: Yes : No Responsible for young children: No Employed: No Stable relationships: No Supportive family: Yes Good rapport with provider: Yes Data Vital Signs Last 24 Hrs: Date Time Temp Pulse Resp B/P (MAP) Pulse Ox O2 Delivery O2 Flow Rate FiO2 01/26/17 07:09 36.9 70 16 122/73 82 137/79 01/25/17 21:16 83 16 147/83 Meds Administered Last 24 Hrs: Meds Administered (Past 24Hrs) Medications (Trade) Dose Ordered Sig/Mary Route Start Time Stop Time Status Last Admin Dose Admin Aripiprazole (Abilify Tab) 5 mg QAM PO 01/25/17 09:00 02/22/17 08:59 01/26/17 08:23 5 MG Mirtazapine (Remeron Tab) 15 mg HS PO 01/24/17 22:00 02/23/17 21:59 01/25/17 21:17 15 MG Lab Results Last 24 Hrs: Last 24 Hours Test 01/25/17 17:29 01/25/17 21:12 01/26/17 07:47 Bedside Glucose 128 mg/dl 120 mg/dl 113 mg/dl
[2017-01-26] MEDS: ATORVASTATIN 20 MG TAB PO SCH (21:20)
[2017-01-26] MEDS: MIRTAZAPINE TAB 15 MG TAB PO SCH (21:21)
[2017-01-26 21:23] VITALS: BP 148/84; PULSE 80
[2017-01-27 06:57] VITALS: BP_SYST 147; BP_SYST 149; BP_DIAS 80; BP_DIAS 90; PULSE 73; PULSE 76; TEMP 36.5
[2017-01-27] MEDS: ARIPIprazole TAB 5 MG TAB PO SCH (08:44)
[2017-01-27] MEDS: GLIMEPIRIDE 2 MG TAB PO SCH (08:46)
[2017-01-27] MEDS: VENLAFAXINE HCL XR 150 MG CAPXR PO SCH (08:46)
[2017-01-27] MEDS: METFORMIN HCL 500 MG TAB PO SCH (08:47)
[2017-01-27] MEDS: HYDROCHLOROTHIAZIDE 25 MG TAB PO SCH (08:48)
[2017-01-27] MEDS: POTASSIUM CHLORIDE 20 MEQ TABCR PO SCH (08:48)
[2017-01-27] MEDS: METOPROLOL TARTRATE 50 MG TAB PO SCH (08:49)
[2017-01-27] MEDS: LISINOPRIL 40 MG TAB PO SCH (08:49)
[2017-01-27] MEDS ORDERED: PSYLLIUM 58.6% PWD PACK S\\F PO SCH (09:00)
[2017-01-27] MEDS ORDERED: MCRK20 PO (09:08)
[2017-01-27] MEDS ORDERED: MTML PO (09:08)
[2017-01-27] MEDS ORDERED: ABL5 PO (09:08)
--- NOTE | 2017-01-27 09:16 | Discharge Instructions ---
Discharge Information Report Includes Report will include the: Discharge Instructions & Summary Admission Admission Date / Time: Jan 21, 2017 at 18:51 Reason for Admission: Depression With Suicidal Ideation Discharge Discharge Diagnosis / Problem: Depression Condition at Discharge: Good Discharge Goals Goal(s): Decrease discomfort, Improve disease control Activity Recommendations Activity Limitations: resume your previous activity . Instructions / Follow-Up Instructions / Follow-Up . SPECIAL CARE INSTRUCTIONS: 1. Follow through with your scheduled aftercare appointments. If unable to keep an appointment, please call to reschedule. 2. Take your medication only as prescribed. Medication should not be changed or stopped without the approval of your doctor. In the event of worsening symptoms or concerns about side effects, contact your doctor immediately. 3. Utilize new healthy coping skills, anger management skills, and stress management skills learned during your hospitalization. Journal feelings and process them with a support person. Identify stressors or situations that may result in relapse, deterioration or inappropriate behaviors and develop a plan to deal with those issues. 4. If your coping skills are ineffective and you are in crisis, contact your outpatient providers for direction. If unable to reach your providers, please call the CAN HELP LINE AT or go to the closest Emergency Room. 5. Avoid alcohol and un-prescribed drugs. 6. You have been provided with the Mental Health Advance Directives Pamphlet for your review. AFTERCARE APPOINTMENTS: * Please call your insurance company prior to your scheduled appointment to confirm your aftercare providers are covered. Take your insurance information to your appointments. . Discharge / Aftercare Planning Primary Care Physician: Name: Dr. Mcmillan Psychiatrist: Name: Kamla KUHN-[facility] Therapist: Name Of Therapist: Nydia GUADARRAMA, [email or web address] . Follow-Up Care Plan for Follow-Up Care: The patient will have prompt follow up with the undersigned on 02/04/17 Current Hospital Diet Patient's current hospital diet: Diabetes Type 2 Diet Discharge Diet Recommended Diet: Diabetes Type 2 Diet Procedures Procedures Performed: No Pending Studies Pending Studies at Discharge: No Medical Emergencies . Who to Call and When: Medical Emergencies: For questions or emergencies related to your hospital stay, please contact the Inpatient Behavioral Health Unit at [phone]. A blender helper is on-call 15/09 for the Behavioral Health Unit for emergencies At any time you feel your situation is an emergency, you may also call 911 immediately. . Non-Emergent Contact Non-Emergency issues call your: Psychiatrist Advance Directives Existing Advance Directive: No Do You Have an Existing Mental: No Existing Living Will: No Existing Power of Retina Subspecialist: No Advance Directives Info Given: To Pt/S.O. Advance Directives Reason: Declines as Mental Health Visit. Discharge Summary Admission HPI Per the Admitting provider: The patient is a 71 yo woman who is in treatment with the [facility] for diagnosis of depression. Her first hospitalization occurred in 2011, but remembers being depressed after her mother in 1965. In 2011 she had been diagnosed with a recurrence of breast cancer and was feeling anxious about the prognosis. She titrated up on Zoloft and did well for several years but had another series of hospitalizations in 2013 and which also included several severe overdose attempts. Her daughter was then placed in charge of her medications, giving one-week time and monitoring to be sure that she was taking them. She also had a hospitalization at [facility] in the last several years for recurrence of depression. She has been doing relatively well over the course of the last year or more on Effexor. She had been on Remeron which caused her to feel tired in the morning which was tapered off. In the last month or 2, her mood has been in deterioration that she was brought in by her daughter and son who have been monitoring her very closely. Apparently after the [place] activities, going to ball games to watch family members, and having outdoor time , she found that she had nothing to do and so began isolating more in her apartment. She found little motivation to get out in continuing her activities but had actually been volunteering at the [facility], attending [employer] and for a time had been participating in a bowling league. Her family noticed that she was isolating more, going out less, requiring more contact from them to monitor her children were concerned about her condition but the patient continued to deny that she felt depressed, feeling more that she was bored and lacked activity. She also had a round of diarrhea that started about a month to month and a half ago and she was worried about having an accident, not wanting to leave the house. We added back Remeron 15 mg which she has found minimally helpful. At each office visit she has agreed to try to get out of the house more, engage in activities but she has not been able to achieve this. She was last seen in the outpatient office about 2 weeks ago at which point she did not want to try adding any medication but wanted to focus on behavioral interventions. We did note that there had to be a threshold for her symptoms agreeing that if she found herself not leaving her apartment for more than 3 days, that she would agree this was a sign her depression needed attention. Apparently her mood continued to decline, as did her motivation. She admits that she has not taken her meds, eaten or been taking care of herself for at least the last 3 days. She recognizes that her depression was escalating and so she called her sister Sarahi who then called Monserrat's children to alert them. Her son Reid then went to her house, called me on an emergent basis and I recommended she be brought to the hospital for admission. Today the patient continues to present as severely depressed. She is however proud of herself that she reached out for help this time. She denies any acute stressors to her mood deterioration other than she has been worrying about her daughter Tracey with whom she has a turbulent relationship. Tracey herself has multiple issues from her childhood, her sexuality and the fact that she is a hoarder that remain undealt with. She also has a very angry undertone, was angry with her mother for having backed out of the baby shower 2 weeks ago. Monserrat admits that her daughter hasn't talked with her between December 28 and . They were together at her son's house for the meal but Monserrat describes it as "strained". She has had no contact with her daughter since . She admits that this weighs on her mind, wishing she could have a more warm and engaging relationship, but feels she doesn't know what to do. Monserrat denies that she has experienced any suicidal ideation during this depression. She does admit her appetite is been down and she is lost about 10 pounds over the last several weeks. Her energy is low, spending time in bed. She sleeps about 3-4 hours during the night but does tend to be sedentary interests all day. She did have a night, Thursday night when she was awake all night. She endorses chronic anxiety, worrying about things since she was a very young person but denies that this escalates to the level of a panic attack. She denies auditory or visual hallucinations. She denies self- injurious behaviors. She denies any symptoms that would be congruent with a bipolar disorder. She generally feels anhedonic, without real purpose in her life. Although she had been attending activities, it was with limited satisfaction. Hospital Course (1) Major depressive disorder, recurrent episode, severe 01/22 - Continue Effexor XR 300 mg daily - Continue Remeron 15 mg at bedtime - Start Abilify 2.5 mg daily - Family meeting with children - Recommend therapy post discharge - Encourage participation in group and individual counseling - Every 15 minute checks for safety - FLP and FBS for monitoring on atypicals 01/24 - Increase aripiprazole to 5 mg daily. - Reviewed fasting labs: Glucose elevated at 150, and triglycerides of 167; remainder of FLP was normal. 01/25 - Continue current meds - Daughter visiting today, will see if staff available to do family meeting, as daughter will be out of town for work this week and unavailable. - Encourage continued work on plan to increase socialization (volunteering) at home (2) Hypokalemia 01/22 - Patient has not been eating and potassium low at 3.0 and was given potassium in the ED. Will repeat potassium tomorrow and may need chronic supplementation in view of hydrochlorothiazide therapy 01/23 - K 2.9 today - Give KCl 40 meq now and 20 meq daily - Repeat K on Thursday - EKG - NSR 01/24 - K 3.6 (3) Hypertension 01/22 - monitor BP's - Continue home antihypertensives (4) Hyperglycemia 01/22 - Continue home dosing of metformin and glimepiride - BSG's daily Risk Factors Assessment : Yes /single/: Yes Higher / Fall in social status: No Access to guns: No Health problems: Yes Mental Health Diagnoses: Yes Substance use disorders: No Previous attempt: Yes Previous attempt;highly lethal: Yes Previous attempt; planned: Yes Family history of suicide: No Previous psychiatric stay: Yes Hopelessness: No Smoker: No Protective Factors Assessment [employer] beliefs: Yes : No Responsible for young children: No Employed: No Stable relationships: No Supportive family: Yes Good rapport with provider: Yes Day of Discharge Assessment COURSE OF HOSPITALIZATION: The patient was on our unit for 6 days. She was admitted voluntarily with severe depression having not gotten out of bed or taken her meds were eaten for 3 days prior to admission. She has a long history of depression having had several very serious intentional overdoses. She recognized her decline, called her children for assistance. Abilify was added to her Effexor and Remeron, 5 mg daily which was researched by the nursing staff and found to be affordable. She had no side effects. Fasting labs were done for baseline monitoring on atypicals. Fasting glucose was 150, lipid panel was within normal limits with the exception of triglycerides which were elevated at 167. She was cooperative with programming and individual counseling, made every effort to stay out of her room during the day. Affectively she remains somewhat restricted. She admits that her primary stressor is her relationship with her daughter Tracey. Monserrat would like to have a closer relationship with her, but Tracey has an angry edge to her and feels frustrated with her when she is depressed and not honest about her feelings. Family meeting was held with both of her children, Tracey and Reid to discuss their concerns. Monserrat is willing to try to explore other activities that will help provide structure in her day, get her out of the house. She denied any suicidal thinking throughout her stay. Her mood progressively improved, rating it most recently at a 7 out of 10 feeling "relaxed". She will continue in follow-up with the undersigned and will likely refer her back for therapy. DAY OF DISCHARGE ASSESSMENT: Today the patient is requesting discharge. She is considered to be improved. She continues to deny suicidal ideation and feels that she is ready to go home. We review her safety plan and she will call both of her children or her sister if she experiences a worsening in her depression or find herself unable to motivate to get out of the house. Today she is casually and appropriately dressed and groomed. Gait and station are within normal limits. Eye contact is good. Affect remains restricted. She is reporting some diarrhea today but did not have her Metamucil during her stay that she has been recommended to take by her workers' compensation claims examiner. Speech is of normal rate volume and tone. She is mildly hard of hearing. Thoughts are organized, goal-directed, and without evidence of thought disorder. Recent and remote memory are intact per conversation. Intelligence estimated to be average. Insight and judgment are improved over admission. Laboratory Test 01/21/17 14:50 01/21/17 15:27 01/23/17 06:59 01/25/17 10:15 Urine Color YELLOW Urine Appearance CLEAR Urine pH 7.0 Urine Specific [place] 1.030 Urine Protein NEG Urine Glucose (UA) 3+ Urine Ketones 1+ Urine Occult Blood NEG Urine Nitrite NEG Urine Bilirubin NEG Urine Urobilinogen NEG Urine Leukocyte Esterase SMALL Urine WBC (Auto) 5-10 Urine RBC (Auto) 0-4 Urine Hyaline Casts (Auto) 0 Urine Epithelial Cells (Auto) >30 Urine Bacteria (Auto) NEG Urine Opiates Screen NEG Urine Methadone, Qualitative NEG Urine Barbiturates NEG Urine Phencyclidine (PCP) Level NEG Ur Amphetamine/Methamphetamine NEG MDMA (Ecstasy) Screen NEG Urine Benzodiazepines Screen NEG Urine Cocaine Metabolite NEG Urine Marijuana (THC) NEG White Blood Count 9.67 Red Blood Count 4.74 Hemoglobin 15.5 Hematocrit 43.7 Mean Corpuscular Volume 92.2 Mean Corpuscular Hemoglobin 32.7 Mean Corpuscular Hemoglobin Concent 35.5 Platelet Count 258 Mean Platelet Volume 10.4 Neutrophils (%) (Auto) 79.4 Lymphocytes (%) (Auto) 13.2 Monocytes (%) (Auto) 6.5 Eosinophils (%) (Auto) 0.5 Basophils (%) (Auto) 0.2 Neutrophils # (Auto) 7.67 Lymphocytes # (Auto) 1.28 Monocytes # (Auto) 0.63 Eosinophils # (Auto) 0.05 Basophils # (Auto) 0.02 RDW Standard Deviation 44.2 RDW Coefficient of Variation 13.2 Immature Granulocyte % (Auto) 0.2 Immature Granulocyte # (Auto) 0.02 Sodium Level 136 Chloride Level 100 Carbon Dioxide Level 26 Anion Gap 11.0 Blood Urea Nitrogen 20 Creatinine 1.19 Est Creatinine Clear Calc Drug Dose 41.4 Estimated GFR () 52.8 Estimated GFR (Non- 45.6 BUN/Creatinine Ratio 16.8 Random Glucose 340 Calcium Level 9.6 Total Bilirubin 0.9 Direct Bilirubin 0.2 Aspartate Amino Transferase (AST) 24 Alanine Aminotransferase (ALT) 33 Alkaline Phosphatase 63 Total Protein 7.8 Albumin 3.8 Beta-Hydroxybutyric Acid 3.78 Thyroid Stimulating Hormone (TSH) 2.130 Free Thyroxine 1.15 Ethyl Alcohol mg/dL < 3.0 Potassium Level 2.9 3.6 Fasting Glucose 150 Triglycerides Level 167 Cholesterol Level 111 HDL Cholesterol 41 LDL Cholesterol, Calculated 37 VLDL Cholesterol, Calculated 33 Cholesterol/HDL Ratio 2.7 Test 01/26/17 21:14 01/27/17 08:29 POC Glucose 141 146 Total Time Total Time Spent (min): Greater than 30 minutes Total Time Included: examination of the patient, discharge planning, medication reconciliation, communication with other providers Tobacco Cessation at Discharge Smoking Status: Never Smoker FDA approved Prescription: non-smoker
== END 2017-01-27 12:34 | disposition home or self-care (01) | DRG 885 ==
LOC: C.EDB 14:24 → C.MHU 18:51 → ENRESERV 18:59
PROVIDERS: ADMIT Psychiatry & Neurology Psychiatry; ATTEND Psychiatry & Neurology Psychiatry
DX: F33.8 Other recurrent depressive disorders (principal); Z83.3 Family history of diabetes mellitus; Z81.8 Family history of other mental and behavioral disorders; E87.6 Hypokalemia; I10 Essential (primary) hypertension; E08.40 Diabetes mellitus due to underlying condition with diabetic neuropathy, unspecified; E11.65 Type 2 diabetes mellitus with hyperglycemia; Z79.84 Long term (current) use of oral hypoglycemic drugs

== ENCOUNTER 2020-08-30 15:46 | Inpatient (IN) ==
[2020-08-30] MEDS ORDERED: SODIUM CHLORIDE 0.9% 1000ML 1,000 ML IV ONE (16:29)
--- NOTE | 2020-08-30 17:11 | XRay Report ---
XR chest 1V portable HISTORY: near syncope COMPARISON: Chest 10/18/2014. FINDINGS: No pneumothorax. No pleural effusions. The heart remains mildly enlarged. Small linear dens ity at the left lung base favor subsegmental atelectasis or scarring. Otherwise, no focal lung consol idations to suggest pneumonia. No evidence for pulmonary edema. There are surgical clips within the l eft axilla. IMPRESSION: No significant change compared to the prior study. No acute process. Stable mild cardiomegaly. ACT 112: Negative or not required by law. Electronically signed by: Marc Orozco M.D. 08/30/2020 5:10 PM
[2020-08-30 17:17] LABS: Appearance Urine Clear (Clear); Bacteria Urine Automated 1+ (Negative); Bilirubin Urine Negative (Negative); Blood Urine Negative (Negative); Color Urine Yellow; Epithelial Cell Urine Auto >30 /lpf (0-5); Glucose Urine UA 3+ (Negative); Ketones Urine 2+ (Negative); Leukocyte Esterase Urine Trace (Negative); Nitrite Urine Negative (Negative); Protein Urine Negative (Negative); Specific Gravity Urine 1.033 (1.000-1.030); Urobilinogen Urine Negative (Negative)
--- NOTE | 2020-08-30 17:18 | Emergency Department Note ---
Impression & Plan Elevated troponin, Diarrhea, Acute hyperglycemia ED Provider Note NAME: KRISTEL ALCANTAR AGE: 75 SEX: F : 1945 ARRIVES VIA: Ambulance INFORMANT: Patient ED PROVIDER(S): Edil Hurst DO CHIEF COMPLAINT: Near syncope HPI: Patient is a 75-year-old female who presents the ER for near syncopal episode. Patient has been having diarrhea off and on for the past 6 weeks. She is going well will be discharged today. Denies any headache or change in vision. She went to the doctor's office today and felt like she had to have a bowel movement. She got lightheaded and sweaty and nauseated. She almost passed out but did not. She denies any chest pain or shortness of breath prior to this or following this. No belly pain. Denies any dysuria urgency or freq uency. No other exacerbating or remitting factors. ROS: See above HPI for pertinent positives & negatives. A total of 10 systems reviewed and were otherwise negative. PAST MEDICAL HISTORY:See Below PAST SURGICAL HISTORY:See Below FAMILY HISTORY:See Below SOCIAL HISTORY:See Below HOME MEDICATIONS:See Below ALLERGIES:See Below VITALS:See Below PHYSICAL EXAMINATION: GENERAL: Sitting up in bed, alert, well appearing, well nourished, no distress, non-toxic EYE EXAM: normal conjunctiva. OROPHARYNX: no exudate, no erythema, lips, buccal mucosa, and tongue normal and mucous membranes are moist NECK: supple, no nuchal rigidity, no adenopathy, non-tender LUNGS: Clear to auscultation. Normal chest wall mechanics HEART: no murmurs, S1 normal and S2 normal ABDOMEN: abdomen soft, non-tender, normo-active bowel sounds, no masses, no rebound or guarding. UPPER EXTREMITIES: upper extremities are grossly normal. LOWER EXTREMITIES: No pitting edema. NEURO EXAM: Normal sensorium, cranial nerves II-XII grossly intact, normal speech, no gross weakness of arms, no gross weakness of legs. MEDICAL DECISION MAKING: Patient is a 75-year-old female who presents the ER for near syncopal event at the PCPs office which sound consistent with vasovagal. IV was established blood work obtained. She has a history of hypertension, hyperlipidemia, diabetes, and cardiomyopathy. BMP shows no significant leukocytosis or anemia. BMP with mild hypokalemia at 3.2. Glucose was elevated at 336. She is given IV fluids and IV insulin. This trend down to 63. LFTs were unremarkable. Troponin was elevated at 0.657. Lipase was normal. UA was contaminated. Patient denied any chest pain or shortness of breath prior to or following this event. She was updated bedside. She given fluids and discussed with the hospitalist for further evaluation. We will hold patient has no chest pain or shortness of breath. Triage Nursing notes reviewed. Limited review of prior medical records performed Vital Signs: reviewed and remarkable for HTN Differential diagnosis: Differential diagnosis includes etiologies such as vasovagal event, infection, hypoglycemia, electrolyte abnormalities, cardiac sources, intracerebral event, toxicologic, neurologic, as well as others were entertained. ER treatment provided: See below Diagnostics interpreted by me: ECG: Sinus rhythm rate of [address] depressions in the lateral as well as high lateral with T wave inversions No significant change from January 2018 Cardiac Monitoring: An order was placed for continuous cardiac monitoring. The monitor shows a rate of 62 with sinus rhythm. Laboratory studies: As stated above and show below. Imaging studies: Portable AP upright 1 view of the chest shows no focal infiltrate or pneumothorax Consultation(s): Discussed the hospitalist for further evaluation Procedures: none Critical Care: None Past Med/Surg History Medical History (Updated 08/30/20 @ 20:00 by Edil Hurst DO) Depression Dyslipidemia HX: breast cancer Hypertension Major depressive disorder with current active episode Non-insulin treated type 2 diabetes mellitus T2DM (type 2 diabetes mellitus) Surgical History History of colonoscopy with polypectomy History of D&C History of hysterectomy History of left mastectomy 2011 due to recurrence History of lumpectomy of left breast 2001, s/p tamoxifen x 5 years. Family History Mother , 53 Ovarian cancer Father , 74 No problems noted. Brother , 52 Primary intra-abdominal lymphoma(non-EBV mediated) Social History Smoking Status: Never smoker Hx Alcohol Use: No Hx Substance Use: No Preferred Language: Irish Communication Ability: Effective Visual Impairment: Partially Limited Hearing Ability: Normal Budget Accountant Required: No Beliefs That Will Affect Care: None Current Living Situation: Alone Feels Safe at Home: Yes Assistive Devices: None Allergies Allergies Allergy/AdvReac Type Severity Reaction Status Date / Time pollen extracts Allergy Mild Sneezing Verified 08/30/20 19:00 No Known Drug Allergies Allergy Unknown Unknown Verified 08/30/20 19:00 Home Meds Home Medications Medication Instructions Recorded Confirmed Entresto 1 tab PO BID 10/12/19 08/30/20 atorvastatin [Lipitor] 20 mg PO DAILY 10/12/19 08/30/20 bupropion HCl 300 mg PO QAM 10/12/19 08/30/20 furosemide [Lasix] 20 mg PO DAILY 10/12/19 08/30/20 levothyroxine 50 mcg PO DAILY 10/12/19 08/30/20 metformin 500 mg PO BID 10/12/19 08/30/20 potassium chloride 10 meq PO DAILY 10/12/19 08/30/20 aspirin [Aspirin Low Dose] 81 mg PO DAILY 08/30/20 08/30/20 carvedilol 25 mg PO BID 08/30/20 08/30/20 cholecalciferol (vitamin D3) 25 mcg PO DAILY 08/30/20 08/30/20 [Vitamin D3] glipizide 10 mg PO DAILY 08/30/20 08/30/20 [id number] acid 1 tab PO DAILY 08/30/20 08/30/20 [Centrum Women] ondansetron HCl 4 mg PO Q8 PRN 08/30/20 08/30/20 Previous Rx's Medication Instructions Recorded calcium polycarbophil [Fiber 1 tab PO QAM #30 tab 02/03/18 (calcium polycarbophil)] Results & Data (ED) Vital Signs Vital Signs - 24 hr 08/30/20 15:45 08/30/20 15:51 08/30/20 16:01 Temperature 37.2 C Temperature Source Oral Pulse Rate - Lying Pulse Rate - Sitting Pulse Rate - Standing Pulse Rate 70 69 68 Pulse Rate [Right Finger] Pulse Rate from SpO2 Sensor 68 Respiratory Rate 16 24 18 Respiratory Effort / Characteristics Non-Labored Respiratory Depth Normal Blood Pressure - Lying Blood Pressure - Sitting Blood Pressure- Standing Blood Pressure 144/75 H 144/75 H 121/65 Blood Pressure [Right Arm] Blood Pressure Mean 98 98 83 Blood Pressure Mean [Right Arm] Pulse Oximetry 99 99 Oxygen Delivery Method Room Air Sepsis Recent Fever Within 48 Hours No Sepsis New/Unexplained Change in Mental Status N/A Sepsis Action Taken by Nursing No Action Required 08/30/20 16:13 08/30/20 16:16 08/30/20 16:31 Temperature Temperature Source Pulse Rate - Lying 68 Pulse Rate - Sitting 74 Pulse Rate - Standing 72 Pulse Rate 74 Pulse Rate [Right Finger] Pulse Rate from SpO2 Sensor 72 Respiratory Rate 18 Respiratory Effort / Characteristics Respiratory Depth Blood Pressure - Lying 148/67 H Blood Pressure - Sitting 150/87 H Blood Pressure- Standing 121/65 Blood Pressure 161/84 H Blood Pressure [Right Arm] Blood Pressure Mean 109 Blood Pressure Mean [Right Arm] Pulse Oximetry 99 98 Oxygen Delivery Method Room Air Sepsis Recent Fever Within 48 Hours Sepsis New/Unexplained Change in Mental Status Sepsis Action Taken by Nursing 08/30/20 17:23 08/30/20 17:24 08/30/20 17:30 Temperature Temperature Source Pulse Rate - Lying Pulse Rate - Sitting Pulse Rate - Standing Pulse Rate 69 72 Pulse Rate [Right Finger] 69 Pulse Rate from SpO2 Sensor 69 72 Respiratory Rate 19 18 15 Respiratory Effort / Characteristics Non-Labored Respiratory Depth Normal Blood Pressure - Lying Blood Pressure - Sitting Blood Pressure- Standing Blood Pressure 139/76 162/82 H Blood Pressure [Right Arm] 139/76 Blood Pressure Mean 97 108 Blood Pressure Mean [Right Arm] 97 Pulse Oximetry 98 98 96 Oxygen Delivery Method Room Air Sepsis Recent Fever Within 48 Hours Sepsis New/Unexplained Change in Mental Status Sepsis Action Taken by Nursing 08/30/20 18:00 08/30/20 18:30 08/30/20 19:00 Temperature Temperature Source Pulse Rate - Lying Pulse Rate - Sitting Pulse Rate - Standing Pulse Rate 72 71 70 Pulse Rate [Right Finger] Pulse Rate from SpO2 Sensor 71 71 69 Respiratory Rate 19 16 18 Respiratory Effort / Characteristics Respiratory Depth Blood Pressure - Lying Blood Pressure - Sitting Blood Pressure- Standing Blood Pressure 151/85 H 159/67 H 163/89 H Blood Pressure [Right Arm] Blood Pressure Mean 107 97 113 Blood Pressure Mean [Right Arm] Pulse Oximetry 96 97 98 Oxygen Delivery Method Sepsis Recent Fever Within 48 Hours Sepsis New/Unexplained Change in Mental Status Sepsis Action Taken by Nursing 08/30/20 19:30 Temperature Temperature Source Pulse Rate - Lying Pulse Rate - Sitting Pulse Rate - Standing Pulse Rate 72 Pulse Rate [Right Finger] Pulse Rate from SpO2 Sensor 71 Respiratory Rate 16 Respiratory Effort / Characteristics Respiratory Depth Blood Pressure - Lying Blood Pressure - Sitting Blood Pressure- Standing Blood Pressure 154/83 H Blood Pressure [Right Arm] Blood Pressure Mean 106 Blood Pressure Mean [Right Arm] Pulse Oximetry 98 Oxygen Delivery Method Sepsis Recent Fever Within 48 Hours Sepsis New/Unexplained Change in Mental Status Sepsis Action Taken by Nursing Laboratory Data Result diagrams: 08/30/20 17:15 08/30/20 17:15 Lab Results 08/30/20 08/30/20 08/30/20 Range/Units 15:57 16:49 17:15 WBC 7.25 (4.8-10.8) K/uL RBC 4.30 (4.2-5.4) M/uL Hgb 14.0 (12.0-16.0) g/dL Hct 39.6 (37-47) % MCV 92.1 (80-100) fL MCH 32.6 (25-34) pg MCHC 35.4 (32-36) g/dL RDW Std Deviation 43.6 (36.4-46.3) fL RDW Coeff of [place] 13.0 (11.5-14.5) % Plt Count 264 (130-400) K/uL MPV 10.2 (7.4-10.4) fL Immature Gran % (Auto) 0.1 % Neut % (Auto) 79.0 % Lymph % (Auto) 16.7 % [place] % (Auto) 4.0 % Eos % (Auto) 0.1 % Baso % (Auto) 0.1 % Neut # (Auto) 5.72 (1.4-6.5) K/uL Lymph # (Auto) 1.21 (1.2-3.4) K/uL [place] # (Auto) 0.29 (0.11-0.59) K/uL Eos # (Auto) 0.01 (0-0.5) K/uL Baso # (Auto) 0.01 (0-0.2) K/uL Immature Gran # (Auto) 0.01 (0.00-0.02) K/uL Sodium (136-145) mmol/L Potassium (3.5-5.1) mmol/L Chloride (98-107) mmol/L Carbon Dioxide (21-32) mmol/L Anion Gap (3-11) BUN (7-18) mg/dl Creatinine (0.6-1.2) mg/dl Est Cr Clr Drug Dosing ml/min Est GFR ( Amer) ml/min Est GFR (Non-Af Amer) ml/min BUN/Creatinine Ratio (10-20) Glucose (70-99) mg/dl POC Glucose 369 H* (70-99) mg/dl Calcium (8.5-10.1) mg/dl Phosphorus (2.5-4.9) mg/dl Magnesium (1.8-2.4) mg/dl Total Bilirubin (0.2-1) mg/dl Direct Bilirubin (0-0.2) mg/dl AST (15-37) U/L ALT (12-78) U/L Alkaline Phosphatase (45-117) U/L Troponin I (0-0.045) ng/ml Total Protein (6.4-8.2) gm/dl Albumin (3.4-5.0) gm/dl Globulin (2.5-4.0) gm/dl Albumin/Globulin Ratio (0.9-2) Lipase (73-393) U/L Beta-Hydroxybutyric Acd (0.2-2.81) mg/dl TSH (0.300-4.500) uIu/ml Urine Color Yellow Urine Appearance Clear (Clear) Urine pH 7.0 (4.5-7.5) Ur Specific [place] 1.033 H (1.000-1.030) Urine Protein Negative (Negative) Urine Glucose (UA) 3+ H (Negative) Urine Ketones 2+ H (Negative) Urine Blood Negative (Negative) Urine Nitrite Negative (Negative) Urine Bilirubin Negative (Negative) Urine Urobilinogen Negative (Negative) Ur Leukocyte Esterase Trace H (Negative) Urine WBC (Auto) 10-30 H (0-5) /hpf Urine RBC (Auto) 5-10 H (0-4) /hpf U Hyaline Cast (Auto) 1-5 (0-5) /lpf U Epithel Cells (Auto) >30 H (0-5) /lpf Urine Bacteria (Auto) 1+ H (Negative) COVID-19 Eval Order 08/30/20 08/30/20 08/30/20 Range/Units 17:15 17:15 17:15 WBC (4.8-10.8) K/uL RBC (4.2-5.4) M/uL Hgb (12.0-16.0) g/dL Hct (37-47) % MCV (80-100) fL MCH (25-34) pg MCHC (32-36) g/dL RDW Std Deviation (36.4-46.3) fL RDW Coeff of [place] (11.5-14.5) % Plt Count (130-400) K/uL MPV (7.4-10.4) fL Immature Gran % (Auto) % Neut % (Auto) % Lymph % (Auto) % [place] % (Auto) % Eos % (Auto) % Baso % (Auto) % Neut # (Auto) (1.4-6.5) K/uL Lymph # (Auto) (1.2-3.4) K/uL [place] # (Auto) (0.11-0.59) K/uL Eos # (Auto) (0-0.5) K/uL Baso # (Auto) (0-0.2) K/uL Immature Gran # (Auto) (0.00-0.02) K/uL Sodium 136 (136-145) mmol/L Potassium 3.2 L (3.5-5.1) mmol/L Chloride 105 (98-107) mmol/L Carbon Dioxide 24 (21-32) mmol/L Anion Gap 7.0 (3-11) BUN 16 (7-18) mg/dl Creatinine 0.99 (0.6-1.2) mg/dl Est Cr Clr Drug Dosing 48.1 ml/min Est GFR ( Amer) 64.2 ml/min Est GFR (Non-Af Amer) 55.4 ml/min BUN/Creatinine Ratio 16.6 (10-20) Glucose 336 H* (70-99) mg/dl POC Glucose (70-99) mg/dl Calcium 8.8 (8.5-10.1) mg/dl Phosphorus 2.3 L (2.5-4.9) mg/dl Magnesium 1.8 (1.8-2.4) mg/dl Total Bilirubin 2.2 H (0.2-1) mg/dl Direct Bilirubin 0.4 H (0-0.2) mg/dl AST 16 (15-37) U/L ALT 22 (12-78) U/L Alkaline Phosphatase 58 (45-117) U/L Troponin I 0.657 H* (0-0.045) ng/ml Total Protein 6.6 (6.4-8.2) gm/dl Albumin 3.2 L (3.4-5.0) gm/dl Globulin 3.4 (2.5-4.0) gm/dl Albumin/Globulin Ratio 0.9 (0.9-2) Lipase 132 (73-393) U/L Beta-Hydroxybutyric Acd 16.40 H (0.2-2.81) mg/dl TSH 0.796 (0.300-4.500) uIu/ml Urine Color Urine Appearance (Clear) Urine pH (4.5-7.5) Ur Specific [place] (1.000-1.030) Urine Protein (Negative) Urine Glucose (UA) (Negative) Urine Ketones (Negative) Urine Blood (Negative) Urine Nitrite (Negative) Urine Bilirubin (Negative) Urine Urobilinogen (Negative) Ur Leukocyte Esterase (Negative) Urine WBC (Auto) (0-5) /hpf Urine RBC (Auto) (0-4) /hpf U Hyaline Cast (Auto) (0-5) /lpf U Epithel Cells (Auto) (0-5) /lpf Urine Bacteria (Auto) (Negative) COVID-19 Eval Order 08/30/20 08/30/20 08/30/20 Range/Units 18:40 18:45 19:34 WBC (4.8-10.8) K/uL RBC (4.2-5.4) M/uL Hgb (12.0-16.0) g/dL Hct (37-47) % MCV (80-100) fL MCH (25-34) pg MCHC (32-36) g/dL RDW Std Deviation (36.4-46.3) fL RDW Coeff of [place] (11.5-14.5) % Plt Count (130-400) K/uL MPV (7.4-10.4) fL Immature Gran % (Auto) % Neut % (Auto) % Lymph % (Auto) % [place] % (Auto) % Eos % (Auto) % Baso % (Auto) % Neut # (Auto) (1.4-6.5) K/uL Lymph # (Auto) (1.2-3.4) K/uL [place] # (Auto) (0.11-0.59) K/uL Eos # (Auto) (0-0.5) K/uL Baso # (Auto) (0-0.2) K/uL Immature Gran # (Auto) (0.00-0.02) K/uL Sodium (136-145) mmol/L Potassium (3.5-5.1) mmol/L Chloride (98-107) mmol/L Carbon Dioxide (21-32) mmol/L Anion Gap (3-11) BUN (7-18) mg/dl Creatinine (0.6-1.2) mg/dl Est Cr Clr Drug Dosing ml/min Est GFR ( Amer) ml/min Est GFR (Non-Af Amer) ml/min BUN/Creatinine Ratio (10-20) Glucose (70-99) mg/dl POC Glucose 282 H 263 H (70-99) mg/dl Calcium (8.5-10.1) mg/dl Phosphorus (2.5-4.9) mg/dl Magnesium (1.8-2.4) mg/dl Total Bilirubin (0.2-1) mg/dl Direct Bilirubin (0-0.2) mg/dl AST (15-37) U/L ALT (12-78) U/L Alkaline Phosphatase (45-117) U/L Troponin I (0-0.045) ng/ml Total Protein (6.4-8.2) gm/dl Albumin (3.4-5.0) gm/dl Globulin (2.5-4.0) gm/dl Albumin/Globulin Ratio (0.9-2) Lipase (73-393) U/L Beta-Hydroxybutyric Acd (0.2-2.81) mg/dl TSH (0.300-4.500) uIu/ml Urine Color Urine Appearance (Clear) Urine pH (4.5-7.5) Ur Specific [place] (1.000-1.030) Urine Protein (Negative) Urine Glucose (UA) (Negative) Urine Ketones (Negative) Urine Blood (Negative) Urine Nitrite (Negative) Urine Bilirubin (Negative) Urine Urobilinogen (Negative) Ur Leukocyte Esterase (Negative) Urine WBC (Auto) (0-5) /hpf Urine RBC (Auto) (0-4) /hpf U Hyaline Cast (Auto) (0-5) /lpf U Epithel Cells (Auto) (0-5) /lpf Urine Bacteria (Auto) (Negative) COVID-19 Eval Order Covid19 at [facility] Administered Medications Discontinued Medications Sodium Chloride (Nss 1000ml) 1,000 mls @ 999 mls/hr IV .[id number] ONE Stop: 08/30/20 17:29 Last Infusion: 08/30/20 19:12 Dose: 0 mls/hr Documented by: [id number] Admin: 08/30/20 17:03 Dose: 999 mls/hr Documented by: [id number] Insulin Human Regular (Novolin-R Insulin Per Unit Charge) 5 units IV NOW STA Stop: 08/30/20 18:34 Last Admin: 08/30/20 19:12 Dose: 5 units Documented by: [id number] Cosigned by: [id number] Potassium Chloride (Potassium Chloride Crtab 20 Meq Tabcr) 40 meq PO NOW STA Stop: 08/30/20 18:44 Last Admin: 08/30/20 18:50 Dose: 40 meq Documented by: [id number] Imaging Data Radiologist's Impression: Chest X-Ray 08/30/20 16:29 XR chest 1V portable HISTORY: near syncope COMPARISON: Chest 10/18/2014. FINDINGS: No pneumothorax. No pleural effusions. The heart remains mildly enlarged. Small linear density at the left lung base favor subsegmental atelectasis or scarring. Otherwise, no focal lung consolidations to suggest pneumonia. No evidence for pulmonary edema. There are surgical clips within the left axilla. IMPRESSION: No significant change compared to the prior study. No acute process. Stable mild cardiomegaly. ACT 112: Negative or not required by law. Electronically signed by: Marc Orozco M.D. 08/30/2020 5:10 PM Discharge Plan Visit Data Chief Complaint: Syncope (Near Syncope) Stated Complaint: hypotensive ED Provider: Edil Hurst Discharge Problem: Elevated troponin, Diarrhea, Acute hyperglycemia Forms Stand Alone Forms: [facility] [employer] Prescriptions Prescriptions: No Action calcium polycarbophil [Fiber (calcium polycarbophil)] 625 mg Tablet 1 tab PO QAM Qty: 30 RF: 0 potassium chloride 10 mEq Capsule, Extended Release 10 meq PO DAILY RF: 0 atorvastatin [Lipitor] 20 mg Tablet 20 mg PO DAILY RF: 0 Entresto 49-51 mg Tablet 1 tab PO BID RF: 0 levothyroxine 50 mcg Tablet 50 mcg PO DAILY RF: 0 furosemide [Lasix] 20 mg Tablet 20 mg PO DAILY RF: 0 metformin 500 mg Tablet Extended Release 24 Hr 500 mg PO BID RF: 0 bupropion HCl 300 mg Tablet Extended Release 24 Hr 300 mg PO QAM RF: 0 carvedilol 25 mg tablet 25 mg PO BID RF: 0 glipizide 10 mg tablet extended release 24hr 10 mg PO DAILY RF: 0 ondansetron HCl 4 mg tablet 4 mg PO Q8 PRN (Reason: Nausea) RF: 0 aspirin [Aspirin Low Dose] 81 mg Tablet,Delayed Release (Dr/Ec) 81 mg PO DAILY RF: 0 cholecalciferol (vitamin D3) [Vitamin D3] 25 mcg (1,000 unit) Tablet 25 mcg PO DAILY RF: 0 Centrum Women 18-400 mg-mcg Tablet 1 tab PO DAILY RF: 0 Discharge Problem: Diarrhea Qualifiers: Diarrhea type: unspecified type Qualified Code(s): R19.7 - Diarrhea, unspecified
[2020-08-30 17:27] LABS: Basophils # (auto) 0.01 K/uL (0-0.2); Basophils % (auto) 0.1 %; Eosinophils # (auto) 0.01 K/uL (0-0.5); Eosinophils % (auto) 0.1 %; Hematocrit (blood only) 39.6 % (37-47); Immature Granulocytes # (auto) 0.01 K/uL (0.00-0.02); Immature Granulocytes % (auto) 0.1 %; Lymphocytes # (auto) 1.21 K/uL (1.2-3.4); Lymphocytes % (auto) 16.7 %; Mean Corpuscular Hemoglobin 32.6 pg (25-34); Mean Corpuscular Hgb Conc 35.4 g/dL (32-36); Mean Corpuscular Volume 92.1 fL (80-100); Mean Platelet Volume 10.2 fL (7.4-10.4); Monocytes # (auto) 0.29 K/uL (0.11-0.59); Neutrophils # (auto) 5.72 K/uL (1.4-6.5); Platelet Count 264 K/uL (130-400); RDW Standard Deviation 43.6 fL (36.4-46.3); White Blood Count 7.25 K/uL (4.8-10.8)
[2020-08-30 18:23] LABS: Albumin Globulin Ratio 0.9 (0.9-2); Albumin Level 3.2 gm/dl (3.4-5.0); BUN Creatinine Ratio 16.6 (10-20); Bilirubin,Total 2.2 mg/dl (0.2-1); Calcium 8.8 mg/dl (8.5-10.1); Creatinine Clr Calc Pharmacy 48.1 ml/min; Est GFR (African American) 64.2 ml/min; Est GFR (Non-African American) 55.4 ml/min; Globulin 3.4 gm/dl (2.5-4.0); Potassium 3.2 mmol/L (3.5-5.1); Total Protein 6.6 gm/dl (6.4-8.2); Troponin I 0.657 ng/ml (0-0.045)
[2020-08-30] MEDS ORDERED: NovoLIN-R INSULIN PER UNIT CHARGE IV STA (18:33)
[2020-08-30 18:42] LABS: Beta-Hydroxybutyrate 16.4 mg/dl (0.2-2.81)
[2020-08-30] MEDS ORDERED: POTASSIUM CHLORIDE CRTAB 20 MEQ TABCR PO STA (18:43)
--- NOTE | 2020-08-30 18:53 | History & Physical Report ---
Date of Service August 30, 2020 Assessment & Plan (1) Near syncope: This is a 75-year-old female who has significant past medical history for nonischemic cardiomyopathy, chronic HFrEF EF 30 to 34%, chronic LBBB, mild mitral regurgitation, HTN, HLD, T2DM, CKD stage III, chronic venous insuffici ency, depression, history of breast cancer who presents ED secondary to near syncopal episode prior to arrival. DDx: hx sounds consistent with orthostatic near syncope vs vasovagal however will do formal work up Admit to PCU Orthostatics twice daily Gentle IV fluid -monitor daily weights and volume status closely in setting of chronic HFrEF Replace electrolytes and treat hyperglycemia Obtain echocardiogram monitor tele will need pt/ot prior to discharge (2) Non-ischemic cardiomyopathy: (3) Chronic HFrEF (heart failure with reduced ejection fraction): (4) Elevated troponin: Nonischemic cardiomyopathy, cardiac cath 09/2019 revealed nonobstructive CAD, dominant right coronary artery anatomy, 50% atherosclerotic disease of RCA, diffuse ectasia, EF 25% Patient was placed on appropriate medical therapies and repeat echo 12/2019 revealed interval improvement of EF to 30 to 34%, left ventricular diffuse hypokinesis On ASA, statin, carvedilol, Entresto, Lasix - carvedilol recently increased on 08/21 Appears euvolemic on exam Hold Lasix for now given hypotension and evidence of orthostasis, reeval volume status daily and resume as able Cycle troponins, currently 0.657, previously elevated EKG unchanged from previous and patient is chest pain-free May be in setting of demand ischemia; however will repeat echocardiogram If troponin trend upward consult cardiology, no need for IV heparin at this point (5) Diarrhea: She has been having diarrhea for the past 6 to 7 weeks, 1-3 episodes daily Described as soft, not loose On 08/06 had negative stool for C. difficile and culture she is scheduled to see gastroenterology as outpatient on 09/07/20 ? If medication ADR Consider Metamucil bulking agent Currently patient denies fever, white count normal, no abdominal pain or hematochezia -if anything changes consider CT abdomen pelvis repeat stool studies and keep outpatient appt - consider GI inpt eval if worsens (6) T2DM (type 2 diabetes mellitus): T2DM with hyperglycemia No evidence of HHS, but hyperglycemia likely in setting of dehydration & med noncompliance Ordered 5 units of regular insulin in ED, BSG 263 now Lantus/novolog per protocol glycemic pharmacist consult - appreciate their input Hold Metformin and glipizide (7) Hypokalemia: Hypophosphatemia Likely secondary to diarrhea K3.2, Phos 2.3 Give 40 M EQ KCl p.o. x1 now 10 M EQ K rider x2 will give additional 40 M EQ KCl p.o. at 2200 Repeat in a.m. (8) Abnormal urinalysis: +1 bacteria, trace leukocyte esterase Afebrile, WBC WNL, patient asymptomatic Await culture We will not treat with antibiotics at this time (9) CKD (chronic kidney disease) stage 3, GFR 30-59 ml/min: baseline cr 1.3 bun/cr 16/0.99 monitor avoid nephrotoxic agents (10) DVT prophylaxis: SQ lovenox Dispo: PCU PCP: Howard Hall FULL CODE Pt was seen and examined in collaboration with Dr. Nicolas, please see addendum History of Present Illness Chief Complaint: Near syncopal episode prior to arrival. Primary Care Provider: Francheska Hall MD This is a 75-year-old female who has significant past medical history for nonischemic cardiomyopathy, chronic HFrEF EF 30 to 34%, chronic LBBB, mild mitral regurgitation, HTN, HLD, T2DM, CKD stage III, chronic venous insufficiency, depression, history of breast cancer who presents ED secondary to near syncopal episode prior to arrival. Patient was seen in clinic by Dr. Howard Hall for follow-up secondary to diarrhea. While in clinic Per PCP note she had vasovagal presyncope in clinic with hypotension and significant hypoglycemia with BSG's in the 400s. There was concern for possible acute diverticulitis and therefore she was referred to ED. She states she has been having diarrhea off and on for 6-7 weeks. Has 1-3 BM daily, no blood or melena. She denies n/v, abdominal pain. Today she had 2 episodes of feeling lightheaded. First was when she was in shower and she got sweaty. 2nd was when she was in clinic today and felt like she was going to pass out. She did not fall or pass out. Overall decrease appetite and afraid to eat due to making her have BM. She is not taking any stool softener at home. She is on metformin but this is not new for her. Recent change in medication was increase in coreg. This occurred 1-2 weeks ago. She denies any recent f/c/s, chest pain, sob, cough, URI sx, hemoptysis, dy suria, hematuria, increased urinary urg/freq. She has appt to see GI as outpt due to diarrhea. She has not had covid vaccine yet. In ED patient remained hemodynamically stable without evidence of hypotension. She did receive 1 L IV fluid bolus. Orthostatics were positive with BP 148/67 lying, 150/87 sitting, 121/65 standing. Lab work notable for K3.2, glucose 336, total bili 2.2, troponin 0.657, beta hydroxybutyric acid 16.4. Her urinalysis was abnormal for glucose and ketones, also positive for WBC and +1 bacteria. Allergies Allergy/AdvReac Type Severity Reaction Status Date / Time pollen extracts Allergy Mild Sneezing Verified 08/30/20 19:00 No Known Drug Allergies Allergy Unknown Unknown Verified 08/30/20 19:00 Home Medications Medication Instructions Recorded Confirmed Type calcium polycarbophil [Fiber 1 tab PO QAM #30 tab 02/03/18 08/30/20 Rx (calcium polycarbophil)] Entresto 1 tab PO BID 10/12/19 08/30/20 History atorvastatin [Lipitor] 20 mg PO DAILY 10/12/19 08/30/20 History bupropion HCl 300 mg PO QAM 10/12/19 08/30/20 History furosemide [Lasix] 20 mg PO DAILY 10/12/19 08/30/20 History levothyroxine 50 mcg PO DAILY 10/12/19 08/30/20 History metformin 500 mg PO BID 10/12/19 08/30/20 History potassium chloride 10 meq PO DAILY 10/12/19 08/30/20 History aspirin [Aspirin Low Dose] 81 mg PO DAILY 08/30/20 08/30/20 History carvedilol 25 mg PO BID 08/30/20 08/30/20 History cholecalciferol (vitamin D3) 25 mcg PO DAILY 08/30/20 08/30/20 History [Vitamin D3] glipizide 10 mg PO DAILY 08/30/20 08/30/20 History vjdzzduyfvmh-ijwd-vwibi acid 1 tab PO DAILY 08/30/20 08/30/20 History [Centrum Women] ondansetron HCl 4 mg PO Q8 PRN 08/30/20 08/30/20 History Past Med/Surg History Medical History (Updated 08/30/20 @ 20:00 by Edil Hurst DO) Depression Dyslipidemia HX: breast cancer Hypertension Major depressive disorder with current active episode Non-insulin treated type 2 diabetes mellitus T2DM (type 2 diabetes mellitus) Surgical History History of colonoscopy with polypectomy History of D&C History of hysterectomy History of left mastectomy 2011 due to recurrence History of lumpectomy of left breast 2001, s/p tamoxifen x 5 years. Family History Mother , 53 Ovarian cancer Father , 74 No problems noted. Brother , 52 Primary intra-abdominal lymphoma(non-EBV mediated) Social History Smoking Status: Never smoker Hx Alcohol Use: No Hx Substance Use: No Preferred Language: Italian Communication Ability: Effective Visual Impairment: Partially Limited Hearing Ability: Normal Process Server Required: No Beliefs That Will Affect Care: None Current Living Situation: Alone Feels Safe at Home: Yes Assistive Devices: None Review of Systems Review of Systems: All systems reviewed & are unremarkable except as noted in HPI & below Physical Exam Physical Exam: Constitutional: Elderly, female, WD/WN, vitals as above, NAD, sitting up in bed, pleasant, conversing easily Head: Normocephalic, Atraumatic Eyes: PERRL, conjunctivae normal, anicteric sclerae ENMT: external ear and nose normal, oropharynx normal Neck: trachea midline, no thyromegaly normal visual inspection Respiratory: normal respiratory effort, lungs clear to auscultation, no wheeze, rales, rhonchi. Normal insp/exp effort, no accessory muscle use Cardiovascular: RRR, no murmur, no edema Vessels: no JVD or carotid bruit Chest: normal inspection of chest Abdomen: normal bowel sounds, soft, nontender, no hepatosplenomegaly Musculoskeletal: no cyanosis or clubbing, extremities motor strength 5/5 Skin: no rashes, warm and dry moderate turgor Neurologic: PERRL, EOMI, accommodation nl, no face palsy, no dysarthria CN's II-XI intact bilaterally and moves all extremities Psychiatric: A+Ox3, euthymic affect Lymphatic: no cervical or axillary lymphadenopathy : deferred Results & Data Results & Data ([facility]) Vital Signs (Past 12 Hours) Vital Signs Temp Pulse Pulse Resp BP BP Pulse Ox 08/30/20 17:24 69 18 139/76 98 08/30/20 16:16 99 08/30/20 15:45 37.2 C 70 16 144/75 H 99 Laboratory Results Diagnostic Findings Chest X-Ray 08/30/20 16:29 XR chest 1V portable HISTORY: near syncope COMPARISON: Chest 10/18/2014. FINDINGS: No pneumothorax. No pleural effusions. The heart remains mildly enlarged. Small linear density at the left lung base favor subsegmental atel ectasis or scarring. Otherwise, no focal lung consolidations to suggest pneumonia. No evidence for pulmonary edema. There are surgical clips within the left axilla. IMPRESSION: No significant change compared to the prior study. No acute process. Stable mild cardiomegaly. ACT 112: Negative or not required by law. Electronically signed by: Marc Orozco M.D. 08/30/2020 5:10 PM Medications Administered Medication List Discontinued Medications Sodium Chloride (Nss 1000ml) 1,000 mls @ 999 mls/hr IV .Q1H1M ONE Stop: 08/30/20 17:29 Last Admin: 08/30/20 17:03 Dose: 999 mls/hr Documented by: [id number] Potassium Chloride (Potassium Chloride Crtab 20 Meq Tabcr) 40 meq PO NOW STA Stop: 08/30/20 18:44 Last Admin: 08/30/20 18:50 Dose: 40 meq Documented by: [id number] ECG Rate (beats per minute): 69 Findings: + LBBB and + prolonged QT (488ms) COVID-19 Results Results COVID-19 Adm Lab Results: RBC 4.30 M/uL (4.2-5.4) 08/30/20 WBC 7.25 K/uL (4.8-10.8) 08/30/20 Hgb 14.0 g/dL (12.0-16.0) 08/30/20 Hct 39.6 % (37-47) 08/30/20 Plt Count 264 K/uL (130-400) 08/30/20 Neutrophils (%) (Auto) 79.0 % 08/30/20 Lymphocytes (%) (Auto) 16.7 % 08/30/20 Monocytes # (Auto) 0.29 K/uL (0.11-0.59) 08/30/20 Eosinophils # (Auto) 0.01 K/uL (0-0.5) 08/30/20 Immature Granulocyte % (Auto) 0.1 % 08/30/20 Neutrophils # (Auto) 5.72 K/uL (1.4-6.5) 08/30/20 Lymphocytes # (Auto) 1.21 K/uL (1.2-3.4) 08/30/20 Monocytes # (Auto) 0.29 K/uL (0.11-0.59) 08/30/20 Eosinophils # (Auto) 0.01 K/uL (0-0.5) 08/30/20 Basophils # (Auto) 0.01 K/uL (0-0.2) 08/30/20 Immature Granulocyte # (Auto) 0.01 K/uL (0.00-0.02) 08/30/20 Na 136 mmol/L (136-145) 08/30/20 K 3.2 mmol/L (3.5-5.1) L 08/30/20 Cl 105 mmol/L (98-107) 08/30/20 CO2 24 mmol/L (21-32) 08/30/20 Anion Gap 7.0 (3-11) 08/30/20 BUN 16 mg/dl (7-18) 08/30/20 Creatinine 0.99 mg/dl (0.6-1.2) 08/30/20 BUN/Creatinine Ratio 16.6 (10-20) 08/30/20 Glucose Level 336 mg/dl (70-99) H* 08/30/20 Ca 8.8 mg/dl (8.5-10.1) 08/30/20 Phosphorus Level 2.3 mg/dl (2.5-4.9) L 08/30/20 Total Bilirubin 2.2 mg/dl (0.2-1) H 08/30/20 Direct Bilirubin 0.4 mg/dl (0-0.2) H 08/30/20 AST/SGOT 16 U/L (15-37) 08/30/20 ALT/SGPT 22 U/L (12-78) 08/30/20 Alkaline Phosphatase 58 U/L (45-117) 08/30/20 Total Protein 6.6 gm/dl (6.4-8.2) 08/30/20 Albumin 3.2 gm/dl (3.4-5.0) L 08/30/20 Globulin 3.4 gm/dl (2.5-4.0) 08/30/20 Albumin/Globulin Ratio 0.9 (0.9-2) 08/30/20 Troponin I 0.657 ng/ml (0-0.045) H* 08/30/20 COVID-19 PCR NEGATIVE (Negative) 08/30/20 Chest X-Ray 08/30/20 Code Status & VTE Plan Code Status Full Code VTE Prophylaxis Plan VTE Prophylaxis will be ordered: Yes Supervising Physician Co-Signing Physician Notes Patient is a 75-year-old female with history of nonischemic cardiomyopathy, chronic left bundle branch block, hypertension, diabetes mellitus, CKD stage III and other medical problems presents with history of near syncope during her visit with her PCP today. Patient denies any head trauma, loss of consciousness. She admits to having diarrhea since 6 weeks duration intermittently. Denies any blood in stools, abdominal pain, nausea, vomiting. She was found to be hypotensive and her blood glucose levels was elevated in 400s and so was sent to ED for further evaluation. Patient denies any chest pain, dyspnea. Her Coreg dose was recently increased by her territory sales executive about 1 week ago. She was noted to have hypokalemia 3.2, glucose 336, bilirubin elevated 2.2, troponin 0 0.657. Also noted abnormal urine analysis, patient denies any dysuria, hematuria, increased urinary frequency, fever, chills. Please review HPI for complete details of presentation. On exam patient is moderately built and nourished, no apparent distress, normocephalic atraumatic, EOMI, normal breath sounds, clear to auscultation, no accessory muscle use, S1-S2, no murmur, no pedal edema, abdomen soft, nontender, normal bowel sounds, no guarding or rigidity, alert, awake, oriented, grossly no focal deficits. Patient is admitted for management of presyncope, hypokalemia, ongoing diarrhea and hyperglycemia. Elevated troponin likely secondary to demand ischemia. EKG remains unchanged. Patient denies any anginal symptoms. Will work-up for presyncope including echocardiogram, carotid ultrasound, monitor on telemetry for any arrhythmias. Fall precautions, PT OT. Replace potassium. Magnesium within normal limits. Trend LFTs for the morning labs. We will also trend cardiac enzymes. Will consider cardiology evaluation if needed. Will hold off any antibiotics for possible UTI given asymptomatic. Monitor for diarrhea and obtain stool studies if diarrhea reoccurs. Patient has GI follow-up scheduled as outpatient. Further management based on above studies. I personally reviewed the record. Patient is interviewed and examined at bedside. Patient's care is coordinated with Damari Munson PA-C. Please refer to the documentation above for details of patient's presentation and for discussion of other issues.
[2020-08-30] MEDS ORDERED: POTASSIUM CHLORIDE / WTR 10 MEQ/100 ML PLCT IV SCH (19:30)
[2020-08-30 19:32] LABS: Magnesium 1.8 mg/dl (1.8-2.4); Phosphorus 2.3 mg/dl (2.5-4.9); Thyroid Stimulating Hormone 0.796 uIu/ml (0.300-4.500)
[2020-08-30] MEDS ORDERED: GLUCOSE 10 TABS/TUBE PO PRN (20:50)
[2020-08-30] MEDS ORDERED: GLUCOSE 40% GEL 15 GM TUBE PO PRN (20:50)
[2020-08-30] MEDS ORDERED: PROMETHAZINE HCL 6.25 MG in SODIUM CHLORIDE 0.9% 50 ML IV PRN (20:50)
[2020-08-30] MEDS ORDERED: MAGNESIUM HYDROXIDE SUSP 30 ML UDC PO PRN (20:50)
[2020-08-30] MEDS ORDERED: GLUCAGON FOR INJ 1 MG VIAL SQ PRN (20:50)
[2020-08-30] MEDS ORDERED: CARBOHYDRATES FOR HYPOGLYCEMIA PO PRN (20:50)
[2020-08-30] MEDS ORDERED: POLYETHYLENE (MIRALAX) 17 GM PACK PO PRN (20:50)
[2020-08-30] MEDS ORDERED: DEXTROSE 50% 50 ML SYRINGE IV PRN (20:50)
[2020-08-30] MEDS ORDERED: ALUMINUM/MAGNESIUM SUSP 30 ML UDC PO PRN (20:50)
[2020-08-30] MEDS ORDERED: ACETAMINOPHEN 325 MG TAB PO PRN (20:50)
[2020-08-30] MEDS ORDERED: PHARMACY GLYCEMIC MGMT CONSULT PRN (20:55)
[2020-08-30] MEDS ORDERED: POTASSIUM PHOSPHATE 6 MMOL in SODIUM CHLORIDE 0.9% 250 ML IV ONE (21:00)
[2020-08-30] MEDS ORDERED: POTASSIUM PHOS 3 MMOL/1 ML INFUSION IV ONE (21:00)
[2020-08-30] MEDS ORDERED: INSULIN GLARGINE SOLOSTAR 100 UNITS/ML 3 ML PEN SC STA (21:04)
--- NOTE | 2020-08-30 21:15 | Ultrasound Report ---
ULTRASOUND OF THE CAROTID ARTERIES CLINICAL HISTORY: near syncope COMPARISON STUDY: None. TECHNIQUE: Real-time, grayscale, and color Doppler sonography of the carotid arteries was performed. Imaging reviewed in the transverse and longitudinal planes. NASCET criteria was utilized for stenosis calcification. FINDINGS: There is mild atherosclerotic plaque present proximal left internal carotid artery. The peak systolic velocity within the right internal carotid artery is 80 cm/sec. The systolic velocity ratio of right internal to common carotid artery is 1.1. The peak systolic velocity within the left internal carotid artery is 124 cm/sec. The systolic velocity ratio left internal to common carotid artery is 1.9. Antegrade flow is seen in the vertebral arteries. The external carotid arteries are patent. IMPRESSION: Atherosclerotic involvement and approximately 50% stenosis within left internal carotid artery. ACT 112: Negative or not required by law. The above report was generated using voice recognition software. It may contain grammatical, syntax o r spelling errors. Electronically signed by: Carmel Johnston DO 08/30/2020 9:14 PM
[2020-08-30] MEDS: ENOXAPARIN INJ 40 MG/0.4 ML SYR SQ SCH (21:50)
[2020-08-30] MEDS: INSULIN ASPART 100 UNITS/ML 3 ML PEN SC SCH ×2 (21:51→23:59)
[2020-08-30] MEDS: carvediloL 25 MG TAB PO SCH (21:52)
[2020-08-30] MEDS: SACUBITRIL-VALSARTAN 49/51 MG TAB PO SCH (21:53)
[2020-08-30] MEDS ORDERED: POTASSIUM CHLORIDE CRTAB 20 MEQ TABCR PO ONE (22:00)
--- NOTE | 2020-08-30 22:33 | Pharmacy Report ---
Pharmacy Glycemic Short Note 2 - Date of Service August 30, 2020 - Glycemic Short BSG Results (Last 24 hours): 08/30/20 08/30/20 08/30/20 15:57 17:15 18:40 Glucose 336 H* POC Glucose 369 H* 282 H 08/30/20 08/30/20 19:34 21:06 Glucose POC Glucose 263 H 204 H OUTPATIENT ANTIDIABETIC REGIMEN: * Metformin 500 mg PO BIDM * Glipizide 10 mg PO daily * HbA1c pending ASSESSMENT: * 75 yo F admitted this afternoon secondary to syncope. Pharmacy has been consulted to assist with inpatient glycemic management. * Admission BSG was elevated at 369 mg/dL. No signs of acidosis. Likely seco ndary to patient having diarrhea recently and being dehydrated. * Received 5 unit IV insulin bolus in ED * Since then, BSGs have trended down: 282-263-204 mg/dL. She is ordered a T2DM diet. * Started Lantus 20 units x 1 * Started Novolog based on a weight/stress of 3 for now. May need loosened. Added overnight checks to ensure BSGs continue trending downward. * Will target a more stringent goal of 110-140 mg/dL. * Hypokalemia noted upon admission. Potassium being repleted appropriately per primary team. PLAN FOR INPATIENT GLYCEMIC CONTROL: * Hold outpatient oral diabetes medications * Basal insulin * Lantus 20 units SC x 1 * Bolus insulin * NovoLog per scale ACHS or Q6hrs while NPO * Goal Range: Low 110 mg/dL - High 140 mg/dL * Correction Factor: 20 mg/dL/unit * Nutritional / Prandial insulin per carb ratio of 1 unit per 7 grams CHO consumed PLAN FOR DISCHARGE: * To be determined
[2020-08-31] MEDS: POTASSIUM CHLORIDE / WTR 10 MEQ/100 ML PLCT IV SCH ×2 (01:14→03:15)
[2020-08-31] MEDS: INSULIN ASPART 100 UNITS/ML 3 ML PEN SC SCH ×5 (03:24→20:39)
[2020-08-31] MEDS: LEVOTHYROXINE SODIUM 50 MCG TABLET PO SCH (05:21)
[2020-08-31 06:25] LABS: Hematocrit (blood only) 36.3 % (37-47); Hemoglobin 12.5 g/dL (12.0-16.0); Mean Corpuscular Hemoglobin 32.1 pg (25-34); Mean Corpuscular Hgb Conc 34.4 g/dL (32-36); Mean Corpuscular Volume 93.3 fL (80-100); Mean Platelet Volume 10.3 fL (7.4-10.4); Platelet Count 235 K/uL (130-400); RDW Coefficient of Variation 13.1 % (11.5-14.5); RDW Standard Deviation 44.6 fL (36.4-46.3); Red Blood Count 3.89 M/uL (4.2-5.4); White Blood Count 5.16 K/uL (4.8-10.8)
[2020-08-31 07:15] LABS: Albumin Level 2.8 gm/dl (3.4-5.0); BUN Creatinine Ratio 16.3 (10-20); Bilirubin,Total 1.7 mg/dl (0.2-1); Calcium 8.3 mg/dl (8.5-10.1); Globulin 2.8 gm/dl (2.5-4.0); Magnesium 1.7 mg/dl (1.8-2.4); Phosphorus 1.9 mg/dl (2.5-4.9); Potassium 4.1 mmol/L (3.5-5.1); Total Protein 5.6 gm/dl (6.4-8.2); Troponin I 0.61 ng/ml (0-0.045)
[2020-08-31 07:43] LABS: Estimated Average Glucose 194 mg/dl; Hemoglobin A1C 8.4 % (4.5-5.6)
[2020-08-31] MEDS: POTASSIUM CHLORIDE 10 MEQ TABCR PO SCH (08:28)
[2020-08-31] MEDS: buPROPion XL 300 MG TABCR PO SCH (08:28)
[2020-08-31] MEDS: ASPIRIN 81 MG ECTAB PO SCH (08:28)
[2020-08-31] MEDS: ATORVASTATIN 20 MG TAB PO SCH (08:28)
[2020-08-31] MEDS: CEROVITE ADV FORMULA TAB PO SCH (08:28)
[2020-08-31] MEDS: SACUBITRIL-VALSARTAN 49/51 MG TAB PO SCH ×2 (08:28→20:42)
[2020-08-31] MEDS: CHOLECALCIFEROL 1,000 UNITS 25 MCG TAB PO SCH (08:28)
[2020-08-31] MEDS: carvediloL 25 MG TAB PO SCH ×2 (08:28→20:42)
[2020-08-31] MEDS ORDERED: INSULIN GLARGINE SOLOSTAR 100 UNITS/ML 3 ML PEN SC ONE (11:45)
--- NOTE | 2020-08-31 11:49 | Pharmacy Report ---
Pharmacy Glycemic Short Note 2 - Date of Service August 31, 2020 - Glycemic Short BSG Results (Last 24 hours): 08/30/20 08/30/20 08/30/20 15:57 17:15 18:40 Glucose 336 H* POC Glucose 369 H* 282 H 08/30/20 08/30/20 08/30/20 19:34 21:06 23:53 Glucose POC Glucose 263 H 204 H 372 H* 08/30/20 08/31/20 08/31/20 23:55 03:19 05:58 Glucose 180 H POC Glucose 256 H 178 H 08/31/20 08/31/20 07:51 11:27 Glucose POC Glucose 180 H 223 H OUTPATIENT ANTIDIABETIC REGIMEN: * Metformin 500 mg PO BIDM * Glipizide 10 mg PO daily * HbA1c pending ASSESSMENT: 08/31/20: * Fasting BSG above goal at 180 mg/dL. Will continue to titrate Lantus dose. * Post prandial BSG elevation despite novolog dosing based on weight/stress of 3. Will only slightly tighten today. I suspect overall improvement in glycemic control will be achieved once basal insulin is closer to steady state. 08/30/20: * 75 yo F admitted this afternoon secondary to syncope. Pharmacy has been con sulted to assist with inpatient glycemic management. * Admission BSG was elevated at 369 mg/dL. No signs of acidosis. Likely secondary to patient having diarrhea recently and being dehydrated. * Received 5 unit IV insulin bolus in ED * Since then, BSGs have trended down: 282-263-204 mg/dL. She is ordered a T2DM diet. * Started Lantus 20 units x 1 * Started Novolog based on a weight/stress of 3 for now. May need loosened. Added overnight checks to ensure BSGs continue trending downward. * Will target a more stringent goal of 110-140 mg/dL. * Hypokalemia noted upon admission. Potassium being repleted appropriately per primary team. PLAN FOR INPATIENT GLYCEMIC CONTROL: * Hold outpatient oral diabetes medications * Basal insulin * Lantus 13 units SQ today with lunch, then dose per scale BID: * 7 units for BSG < 140 mg/dL * 10 units for BSG 140 - 180 mg/dL * 13 units for BSG > 180 mg/dL * Bolus insulin * NovoLog per scale ACHS or Q6hrs while NPO * Goal Range: Low 110 mg/dL - High 140 mg/dL * Correction Factor: 18 mg/dL/unit * Nutritional / Prandial insulin per carb ratio of 1 unit per 5 grams CHO consumed PLAN FOR DISCHARGE: * To be determined
[2020-08-31] MEDS ORDERED: POTASSIUM PHOS 3 MMOL/1 ML INFUSION IV STA (13:24)
--- NOTE | 2020-08-31 13:39 | Hospitalist Progress Note ---
Date of Service August 31, 2020 Assessment & Plan (1) Near syncope: 75-year-old female who has significant past medical history for nonischemic cardiomyopathy, chronic HFrEF EF 30 to 34%, chronic LBBB, mild mitral regurgitation, HTN, HLD, T2DM, CKD stage III, chronic venous insufficiency, depression, history of breast cancer who presents ED secondary to near syncopal episode Syncopal episode may be orthostatic or vasovagal especially in the setting of diarrhea over the past couple of weeks Got IV fluids. Carotid duplex shows macular sclerosis with about 50% stenosis in left ICA Follow-up 2D echo Monitor vitals and orthostatics (2) Non-ischemic cardiomyopathy: (3) Chronic HFrEF (heart failure with reduced ejection fraction): (4) Elevated troponin: Nonischemic cardiomyopathy, cardiac cath 09/2019 revealed nonobstructive CAD, dominant right coronary artery anatomy, 50% atherosclerotic disease of RCA, diffuse ectasia, EF 25% Patient was placed on appropriate medical therapies and repeat echo 12/2019 revealed interval improvement of EF to 30 to 34%, left ventricular diffuse hypokinesis On ASA, statin, carvedilol, Entresto, Lasix - carvedilol recently increased on 08/21 Currently euvolemic on exam Continue to hold Lasix for now given hypotension and evidence of orthostasis, reeval volume status daily and resume as able Troponins on admission 0.657, trended down slightly to 0.610 EKG unchanged from previous Patient denies any chest pain Follow-up 2D echo (5) Diarrhea: She has been having diarrhea for the past 6 to 7 weeks, 1-3 episodes daily Described as soft, not loose On 08/06 had negative stool for C. difficile and culture she is scheduled to see gastroenterology as outpatient on 09/07/[address] abdomen pelvis for evaluation. C. difficile is negative. Follow-up stool analysis (6) T2DM (type 2 diabetes mellitus): DM2 with hyperglycemia No evidence of HHS, but hyperglycemia likely in setting of dehydration & med noncompliance Pharmacy on board for glycemic management. Continue insulin per protocol (7) Hypokalemia: Hypophosphatemia Hypomagnesemia Likely secondary to diarrhea K is normal today Phosphorus and magnesium still low. Give IV repletion. Monitor Continue p.o. (8) Abnormal urinalysis: +1 bacteria, trace leukocyte esterase Afebrile, WBC WNL, patient asymptomatic Culture - mixed zhao (9) CKD (chronic kidney disease) stage 3, GFR 30-59 ml/min: Baseline cr 1.3 Cr is 0.89 today Monitor Avoid nephrotoxic agents (10) DVT prophylaxis: SQ lovenox Dispo: PCU PCP: Howard Hall FULL CODE Admission and Anticipated Discharge Date Admission Date: August 30, 2020 Subjective 75-year-old female who has significant past medical history for nonischemic cardiomyopathy, chronic HFrEF EF 30 to 34%, chronic LBBB, mild mitral regurgitation, HTN, HLD, T2DM, CKD stage III, chronic venous insufficiency, depression, history of breast cancer who presents ED secondary to near syncopal episode at her doctor's office Patient seen and examined this morning. Still reports diarrhea. Denies any dizziness, headache. Denies any palpitations, chest pain, shortness of breath Denies any abdominal pain, nausea, vomiting Reports improving appetite Denied hematuria, hematochezia or melena Review of Systems Review of Systems: All systems reviewed & are unremarkable except as noted in Subjective Physical Exam Constitutional: + well hydrated; no acute distress Eyes: PERRL, conjunctivae normal, anicteric sclerae ENMT: external ear and nose normal, oropharynx normal Respiratory: normal respiratory effort, lungs clear to auscultation Cardiovascular: Rate/Rhythm: regular rate and regular rhythm S1-S2 Gastrointestinal (Abdomen): normal bowel sounds, soft, nontender, no hepatosplenomegaly Musculoskeletal: no cyanosis or clubbing, extremities motor strength 5/5 Neurologic: PERRL, EOMI, accommodation nl, no face palsy, no dysarthria Psychiatric: A+Ox3, euthymic affect Results & Data Results & Data ([facility]) Vital Signs (Past 12 Hours) Vital Signs Temp Pulse Pulse Pulse Resp BP Pulse Ox 08/31/20 12:27 36.9 C 61 18 133/79 94 08/31/20 08:44 62 08/31/20 08:35 36.7 C 66 18 132/77 95 08/31/20 03:24 36.8 C 64 17 144/73 H 97 Laboratory Results Abnormal lab results 08/30/20 08/30/20 08/30/20 Range/Units 15:57 16:49 17:15 RBC (4.2-5.4) M/uL Hct (37-47) % Potassium 3.2 L (3.5-5.1) mmol/L Chloride (98-107) mmol/L Glucose 336 H* (70-99) mg/dl POC Glucose 369 H* (70-99) mg/dl Hemoglobin A1c (4.5-5.6) % Calcium (8.5-10.1) mg/dl Phosphorus (2.5-4.9) mg/dl Magnesium (1.8-2.4) mg/dl Total Bilirubin 2.2 H (0.2-1) mg/dl Direct Bilirubin (0-0.2) mg/dl AST (15-37) U/L Troponin I 0.657 H* (0-0.045) ng/ml Total Protein (6.4-8.2) gm/dl Albumin 3.2 L (3.4-5.0) gm/dl Beta-Hydroxybutyric Acd 16.40 H (0.2-2.81) mg/dl Ur Specific [place] 1.033 H (1.000-1.030) Urine Glucose (UA) 3+ H (Negative) Urine Ketones 2+ H (Negative) Ur Leukocyte Esterase Trace H (Negative) Urine WBC (Auto) 10-30 H (0-5) /hpf Urine RBC (Auto) 5-10 H (0-4) /hpf U Epithel Cells (Auto) >30 H (0-5) /lpf Urine Bacteria (Auto) 1+ H (Negative) 08/30/20 08/30/20 08/30/20 Range/Units 17:15 17:15 18:40 RBC (4.2-5.4) M/uL Hct (37-47) % Potassium (3.5-5.1) mmol/L Chloride (98-107) mmol/L Glucose (70-99) mg/dl POC Glucose 282 H (70-99) mg/dl Hemoglobin A1c (4.5-5.6) % Calcium (8.5-10.1) mg/dl Phosphorus 2.3 L (2.5-4.9) mg/dl Magnesium (1.8-2.4) mg/dl Total Bilirubin (0.2-1) mg/dl Direct Bilirubin 0.4 H (0-0.2) mg/dl AST (15-37) U/L Troponin I (0-0.045) ng/ml Total Protein (6.4-8.2) gm/dl Albumin (3.4-5.0) gm/dl Beta-Hydroxybutyric Acd (0.2-2.81) mg/dl Ur Specific [place] (1.000-1.030) Urine Glucose (UA) (Negative) Urine Ketones (Negative) Ur Leukocyte Esterase (Negative) Urine WBC (Auto) (0-5) /hpf Urine RBC (Auto) (0-4) /hpf U Epithel Cells (Auto) (0-5) /lpf Urine Bacteria (Auto) (Negative) 08/30/20 08/30/20 08/30/20 Range/Units 19:34 21:06 22:33 RBC (4.2-5.4) M/uL Hct (37-47) % Potassium (3.5-5.1) mmol/L Chloride (98-107) mmol/L Glucose (70-99) mg/dl POC Glucose 263 H 204 H (70-99) mg/dl Hemoglobin A1c (4.5-5.6) % Calcium (8.5-10.1) mg/dl Phosphorus (2.5-4.9) mg/dl Magnesium (1.8-2.4) mg/dl Total Bilirubin (0.2-1) mg/dl Direct Bilirubin (0-0.2) mg/dl AST (15-37) U/L Troponin I 0.654 H* (0-0.045) ng/ml Total Protein (6.4-8.2) gm/dl Albumin (3.4-5.0) gm/dl Beta-Hydroxybutyric Acd (0.2-2.81) mg/dl Ur Specific [place] (1.000-1.030) Urine Glucose (UA) (Negative) Urine Ketones (Negative) Ur Leukocyte Esterase (Negative) Urine WBC (Auto) (0-5) /hpf Urine RBC (Auto) (0-4) /hpf U Epithel Cells (Auto) (0-5) /lpf Urine Bacteria (Auto) (Negative) 08/30/20 08/30/20 08/31/20 Range/Units 23:53 23:55 03:19 RBC (4.2-5.4) M/uL Hct (37-47) % Potassium (3.5-5.1) mmol/L Chloride (98-107) mmol/L Glucose (70-99) mg/dl POC Glucose 372 H* 256 H 178 H (70-99) mg/dl Hemoglobin A1c (4.5-5.6) % Calcium (8.5-10.1) mg/dl Phosphorus (2.5-4.9) mg/dl Magnesium (1.8-2.4) mg/dl Total Bilirubin (0.2-1) mg/dl Direct Bilirubin (0-0.2) mg/dl AST (15-37) U/L Troponin I (0-0.045) ng/ml Total Protein (6.4-8.2) gm/dl Albumin (3.4-5.0) gm/dl Beta-Hydroxybutyric Acd (0.2-2.81) mg/dl Ur Specific [place] (1.000-1.030) Urine Glucose (UA) (Negative) Urine Ketones (Negative) Ur Leukocyte Esterase (Negative) Urine WBC (Auto) (0-5) /hpf Urine RBC (Auto) (0-4) /hpf U Epithel Cells (Auto) (0-5) /lpf Urine Bacteria (Auto) (Negative) 08/31/20 08/31/20 08/31/20 Range/Units 05:58 05:58 05:58 RBC 3.89 L (4.2-5.4) M/uL Hct 36.3 L (37-47) % Potassium (3.5-5.1) mmol/L Chloride 112 H (98-107) mmol/L Glucose 180 H (70-99) mg/dl POC Glucose (70-99) mg/dl Hemoglobin A1c 8.4 H (4.5-5.6) % Calcium 8.3 L (8.5-10.1) mg/dl Phosphorus 1.9 L (2.5-4.9) mg/dl Magnesium 1.7 L (1.8-2.4) mg/dl Total Bilirubin 1.7 H (0.2-1) mg/dl Direct Bilirubin (0-0.2) mg/dl AST 14 L (15-37) U/L Troponin I 0.610 H* (0-0.045) ng/ml Total Protein 5.6 L (6.4-8.2) gm/dl Albumin 2.8 L (3.4-5.0) gm/dl Beta-Hydroxybutyric Acd (0.2-2.81) mg/dl Ur Specific [place] (1.000-1.030) Urine Glucose (UA) (Negative) Urine Ketones (Negative) Ur Leukocyte Esterase (Negative) Urine WBC (Auto) (0-5) /hpf Urine RBC (Auto) (0-4) /hpf U Epithel Cells (Auto) (0-5) /lpf Urine Bacteria (Auto) (Negative) 08/31/20 08/31/20 Range/Units 07:51 11:27 RBC (4.2-5.4) M/uL Hct (37-47) % Potassium (3.5-5.1) mmol/L Chloride (98-107) mmol/L Glucose (70-99) mg/dl POC Glucose 180 H 223 H (70-99) mg/dl Hemoglobin A1c (4.5-5.6) % Calcium (8.5-10.1) mg/dl Phosphorus (2.5-4.9) mg/dl Magnesium (1.8-2.4) mg/dl Total Bilirubin (0.2-1) mg/dl Direct Bilirubin (0-0.2) mg/dl AST (15-37) U/L Troponin I (0-0.045) ng/ml Total Protein (6.4-8.2) gm/dl Albumin (3.4-5.0) gm/dl Beta-Hydroxybutyric Acd (0.2-2.81) mg/dl Ur Specific [place] (1.000-1.030) Urine Glucose (UA) (Negative) Urine Ketones (Negative) Ur Leukocyte Esterase (Negative) Urine WBC (Auto) (0-5) /hpf Urine RBC (Auto) (0-4) /hpf U Epithel Cells (Auto) (0-5) /lpf Urine Bacteria (Auto) (Negative)
[2020-08-31] MEDS ORDERED: POTASSIUM PHOSPHATE 24 MMOL in SODIUM CHLORIDE 0.9% 500 ML IV ONE (14:00)
[2020-08-31] MEDS: MAGNESIUM SULFATE / D5W 1 GM/100 ML BAG IV SCH ×2 (14:58→16:40)
[2020-08-31] MEDS ORDERED: OPTIRAY 320 100ml IV ONE (18:52)
--- NOTE | 2020-08-31 19:22 | CT Scan Report ---
ABDOMEN AND PELVIS CT WITH IV AND ORAL CONTRAST CT DOSE: 482.59 mGy.cm HISTORY: Acute diarrhea Diarrhea, anorexia TECHNIQUE: Multiaxial CT images of the abdomen and pelvis were performed following the IV administrat ion of 94 cc of Optiray and oral contrast. A dose lowering technique was utilized adhering to the pr inciples of THAIS. COMPARISON STUDY: Chest CT 02/06/2008 FINDINGS: Cardiomegaly. No pericardial effusion. Mild bibasilar atelectasis/scarring. No pneumatosis or pneumoperitoneum. Unremarkable spleen. Moderate generalized pancreatic atrophy. The adrenal glands , contracted gallbladder and liver are unremarkable. Patency of the portal vein. Cortical thinning of the kidneys. 3 mm nonobstructing calculus of the superior pole left kidney. No u reteral calculi or hydronephrosis. There is a 4 mm calcification within the region of the dependent u rinary bladder on image 386 of series 3. Atherosclerosis of the aorta and branch vessels. No aneurysm . There is no adenopathy. No bowel obstruction. There is mild wall thickening of the ascending and transverse colon. There is a focal area of luminal narrowing with wall thickening involving the ascending colon measuring 3.1 cm in length on image 212. Colonic diverticulosis. No ascites or mesenteric inflammation. Normal appendi x. Unremarkable soft tissues. No acute fracture. Degenerative changes of the shoulders and spine. No suspicious bone lesion. Mild lumbar dextroscoliosis. IMPRESSION: 1. Mild wall thickening of the ascending and transverse colon may be secondary to partial distention versus a mild nonspecific colitis. 2. There is a 3.1 cm segment of luminal narrowing involving the ascending colon which is likely secon [place] to peristalsing bowel. A colonic lesion is considered less likely. 3. No bowel obstruction or pneumoperitoneum. Normal appendix. 4. Colonic diverticulosis. ACT 112: Negative or not required by law. The above report was generated using voice recognition software. It may contain grammatical, syntax o r spelling errors. Electronically signed by: Ranjit Ceron M.D. 08/31/2020 7:21 PM
[2020-08-31] MEDS: ENOXAPARIN INJ 40 MG/0.4 ML SYR SQ SCH (20:43)
[2020-08-31] MEDS ORDERED: INSULIN GLARGINE SOLOSTAR 100 UNITS/ML 3 ML PEN SC SCH (21:00)
[2020-08-31] MEDS ORDERED: LOPERAMIDE HCL 2 MG CAP PO STA (21:12)
[2020-09-01] MEDS: LEVOTHYROXINE SODIUM 50 MCG TABLET PO SCH (06:00)
--- NOTE | 2020-09-01 06:03 | Electrocardiogram Report ---
Test Reason : Blood Pressure : / mmHG Vent. Rate : 069 BPM Atrial Rate : 069 BPM P-R Int : 192 ms QRS Dur : 156 ms QT Int : 456 ms P-R-T Axes : 028 -53 138 degrees QTc Int : 488 ms Normal sinus rhythm Left axis deviation Left bundle branch block Abnormal ECG When compared with ECG of 02-FEB-2018 07:11, No significant change was found Confirmed by Renny Michel ([id number]) on 09/01/2020 6:03:15 AM Referred By: REFERRED SELF Confirmed By:Renny Michel
--- NOTE | 2020-09-01 06:22 | Electrocardiogram Report ---
Test Reason : Blood Pressure : / mmHG Vent. Rate : 065 BPM Atrial Rate : 065 BPM P-R Int : 192 ms QRS Dur : 144 ms QT Int : 468 ms P-R-T Axes : 039 -57 151 degrees QTc Int : 486 ms Normal sinus rhythm Left axis deviation Left bundle branch block Abnormal ECG When compared with ECG of 30-AUG-2020 17:00, No significant change was found Confirmed by Renny Michel ([id number]) on 09/01/2020 6:22:19 AM Referred By: REFERRED SELF Confirmed By:Renny Michel
[2020-09-01 06:58] LABS: Hematocrit (blood only) 37.1 % (37-47); Hemoglobin 12.7 g/dL (12.0-16.0); Mean Corpuscular Hemoglobin 32.3 pg (25-34); Mean Corpuscular Hgb Conc 34.2 g/dL (32-36); Mean Corpuscular Volume 94.4 fL (80-100); Mean Platelet Volume 10.5 fL (7.4-10.4); Platelet Count 246 K/uL (130-400); RDW Coefficient of Variation 13.2 % (11.5-14.5); RDW Standard Deviation 45.8 fL (36.4-46.3); Red Blood Count 3.93 M/uL (4.2-5.4); White Blood Count 6.14 K/uL (4.8-10.8)
[2020-09-01 07:26] LABS: BUN Creatinine Ratio 11.9 (10-20); Calcium 8.7 mg/dl (8.5-10.1); Creatinine Clr Calc Pharmacy 44.6 ml/min; Est GFR (African American) 61.2 ml/min; Est GFR (Non-African American) 52.8 ml/min; Magnesium 2.1 mg/dl (1.8-2.4); Potassium 3.5 mmol/L (3.5-5.1)
[2020-09-01 07:39] LABS: Phosphorus 3.6 mg/dl (2.5-4.9)
[2020-09-01] MEDS: buPROPion XL 300 MG TABCR PO SCH (08:22)
[2020-09-01] MEDS: CEROVITE ADV FORMULA TAB PO SCH (08:22)
[2020-09-01] MEDS: SACUBITRIL-VALSARTAN 49/51 MG TAB PO SCH (08:22)
[2020-09-01] MEDS: POTASSIUM CHLORIDE 10 MEQ TABCR PO SCH (08:23)
[2020-09-01] MEDS: carvediloL 25 MG TAB PO SCH (08:23)
[2020-09-01] MEDS: ATORVASTATIN 20 MG TAB PO SCH (08:23)
[2020-09-01] MEDS: ASPIRIN 81 MG ECTAB PO SCH (08:23)
[2020-09-01] MEDS: INSULIN ASPART 100 UNITS/ML 3 ML PEN SC SCH ×2 (08:24→11:59)
[2020-09-01] MEDS ORDERED: INSULIN GLARGINE SOLOSTAR 100 UNITS/ML 3 ML PEN SC SCH (09:00)
[2020-09-01] MEDS: CHOLECALCIFEROL 1,000 UNITS 25 MCG TAB PO SCH (09:11)
--- NOTE | 2020-09-01 11:12 | Discharge Summary ---
Date of Service September 01, 2020 Admission HPI Per Admitting Provider This is a 75-year-old female who has significant past medical history for nonischemic cardiomyopathy, chronic HFrEF EF 30 to 34%, chronic LBBB, mild mitral regurgitation, HTN, HLD, T2DM, CKD stage III, chronic venous ins ufficiency, depression, history of breast cancer who presents ED secondary to near syncopal episode prior to arrival. Patient was seen in clinic by Dr. Howard Hall for follow-up secondary to diarrhea. While in clinic Per PCP note she had vasovagal presyncope in clinic with hypotension and significant hypoglycemia with BSG's in the 400s. There was concern for possible acute diverticulitis and therefore she was referred to ED. She states she has been having diarrhea off and on for 6-7 weeks. Has 1-3 BM daily, no blood or melena. She denies n/v, abdominal pain. Today she had 2 episodes of feeling lightheaded. First was when she was in shower and she got sweaty. 2nd was when she was in clinic today and felt like she was going to pass out. She did not fall or pass out. Overall decrease appetite and afraid to eat due to making her have BM. She is not taking any stool softener at home. She is on metformin but this is not new for her. Recent change in medication was increase in coreg. This occurred 1-2 weeks ago. She denies any recent f/c/s, chest pain, sob, cough, URI sx, hemoptysis, dysuria, hematuria, increased urinary urg/freq. She has appt to see GI as outpt due to diarrhea. She has not had covid vaccine yet. In ED patient remained hemodynamically stable without evidence of hypotension. She did receive 1 L IV fluid bolus. Orthostatics were positive with BP 148/67 lying, 150/87 sitting, 121/65 standing. Lab work notable for K3.2, glucose 336, total bili 2.2, troponin 0.657, beta hydroxybutyric acid 16.4. Her urinalysis was abnormal for glucose and ketones, also positive for WBC and +1 bacteria. Admission Exam Per Admitting Provider Constitutional: Elderly, female, WD/WN, vitals as above, NAD, sitting up in bed, pleasant, conversing easily Head: Normocephalic, Atraumatic Eyes: PERRL, conjunctivae normal, anicteric sclerae ENMT: external ear and nose normal, oropharynx normal Neck: trachea midline, no thyromegaly normal visual inspection Respiratory: normal respiratory effort, lungs clear to auscultation, no wheeze, rales, rhonchi. Normal insp/exp effort, no accessory muscle use Cardiovascular: RRR, no murmur, no edema Vessels: no JVD or carotid bruit Chest: normal inspection of chest Abdomen: normal bowel sounds, soft, nontender, no hepatosplenomegaly Musculoskeletal: no cyanosis or clubbing, extremities motor strength 5/5 Skin: no rashes, warm and dry moderate turgor Neurologic: PERRL, EOMI, accommodation nl, no face palsy, no dysarthria CN's II-XI intact bilaterally and moves all extremities Psychiatric: A+Ox3, euthymic affect Lymphatic: no cervical or axillary lymphadenopathy : deferred Principal Diagnosis Near syncope Diarrhea Electrolyte abnormalities [hypokalemia, hypophosphatemia, hypomagnesemia] Discharge Exam Constitutional + well hydrated; no acute distress Eyes PERRL, conjunctivae normal, anicteric sclerae ENMT external ear and nose normal, oropharynx normal Respiratory normal respiratory effort, lungs clear to auscultation Cardiovascular Rate/Rhythm: regular rate and regular rhythm S1 S2. No pedal edema Gastrointestinal (Abdomen) normal bowel sounds, soft, nontender, no hepatosplenomegaly Musculoskeletal no cyanosis or clubbing, extremities motor strength 5/5 Neurologic PERRL, EOMI, accommodation nl, no face palsy, no dysarthria Psychiatric A+Ox3, euthymic affect Discharge Data Allergies Allergy/AdvReac Type Severity Reaction Status Date / Time pollen extracts Allergy Mild Sneezing Verified 08/30/20 19:00 No Known Drug Allergies Allergy Unknown Unknown Verified 08/30/20 19:00 Consultations 08/30/20 18:37 ED Decision to Admit Stat Ordered Studies 08/30/20 19:18 US carotid doppler BI Stat 08/30/20 20:50 US carotid doppler BI Routine There is mild atherosclerotic plaque present proximal left internal carotid artery. The peak systolic velocity within the right internal carotid artery is 80 cm /sec. The systolic velocity ratio of right internal to common carotid artery is 1.1. The peak systolic velocity within the left internal carotid artery is 124 cm/sec. The systolic velocity ratio left internal to common carotid artery is 1.9. Antegrade flow is seen in the vertebral arteries. The external carotid arteries are patent. IMPRESSION: Atherosclerotic involvement and approximately 50% stenosis within left internal carotid artery. 08/31/20 13:38 CT abd pelvis oral and IV con Urgent Cardiomegaly. No pericardial effusion. Mild bibasilar atelectasis/scarring. No pneumatosis or pneumoperitoneum. Unremarkable spleen. Moderate generalized pancreatic atrophy. The adrenal glands, contracted gallbladder and liver are unremarkable. Patency of the portal vein. Cortical thinning of the kidneys. 3 mm nonobstructing calculus of the superior pole left kidney. No ureteral calculi or hydronephrosis. There is a 4 mm calcification within the region of the dependent urinary bladder on image 386 of series 3. Atherosclerosis of the aorta and branch vessels. No aneurysm. There is no adenopathy. No bowel obstruction. There is mild wall thickening of the ascending and transverse colon. There is a focal area of luminal narrowing with wall thickening involving the ascending colon measuring 3.1 cm in length on image 212. Colonic diverticulosis. No ascites or mesenteric inflammation. Normal appendix. Unremarkable soft tissues. No acute fracture. Degenerative changes of the shoulders and spine. No suspicious bone lesion. Mild lumbar dextroscoliosis. IMPRESSION: 1. Mild wall thickening of the ascending and transverse colon may be secondary to partial distention versus a mild nonspecific colitis. 2. There is a 3.1 cm segment of luminal narrowing involving the ascending colon which is likely secondary to peristalsing bowel. A colonic lesion is considered less likely. 3. No bowel obstruction or pneumoperitoneum. Normal appendix. 4. Colonic diverticulosis. Hospital Course (1) Near syncope: 75-year-old female who has significant past medical history for nonischemic cardiomyopathy, chronic HFrEF EF 30 to 34%, chronic LBBB, mild mitral regurgitation, HTN, HLD, T2DM, CKD stage III, chronic venous insufficiency, depression, history of breast cancer who presents ED secondary to near syncopal episode Syncopal episode may be orthostatic or vasovagal especially in the setting of diarrhea over the past couple of weeks Got IV fluids. Carotid duplex shows atherosclerosis with about 50% stenosis in left ICA Echo was unchanged from prior (2) Non-ischemic cardiomyopathy: (3) Chronic HFrEF (heart failure with reduced ejection fraction): (4) Elevated troponin: Nonischemic cardiomyopathy, cardiac cath 09/2019 revealed nonobstructive CAD, dominant right coronary artery anatomy, 50% atherosclerotic disease of RCA, diffuse ectasia, EF 25% Patient was placed on appropriate medical therapies and repeat echo 12/2019 revealed interval improvement of EF to 30 to 34%, left ventricular diffuse hypokinesis On ASA, statin, carvedilol, Entresto, Lasix - carvedilol recently increased on 08/21 Currently euvolemic on exam Continue to hold Lasix for now given hypotension and evidence of orthostasis, reeval volume status daily and resume as able Troponins on admission 0.657, trended down slightly to 0.610 EKG unchanged from previous Patient denies any chest pain Patient to follow up with Cardiology (5) Diarrhea: She has been having diarrhea for the past 6 to 7 weeks, 1-3 episodes daily Described as soft, not loose On 08/06 had negative stool for C. difficile and culture C diff negative CT findings as above Patient has follow up scheduled with GI next week Advised to continue home imodium prn. Stated she still has some at home Advised to hold lasix if diarrhea worsens (6) T2DM (type 2 diabetes mellitus): DM2 with hyperglycemia A1c is 8.4 Continue home glipizide and metformin (7) Hypokalemia: Hypophosphatemia Hypomagnesemia Likely secondary to diarrhea Repleted Today K is 3.5, Phosph is 3.6, mag 2.7 Home potassium increased to 20mEq daily Started on mag daily (8) Abnormal urinalysis: +1 bacteria, trace leukocyte esterase Afebrile, WBC WNL, patient asymptomatic Culture - mixed zhao (9) CKD (chronic kidney disease) stage 3, GFR 30-59 ml/min: Baseline cr 1.3 Cr is 1.03 today Monitor Avoid nephrotoxic agents Total Time Total Time Spent Total Time Spent (In Minutes): 50 Total Time Includes: Examination of the Patient, Discharge Planning and Medication Reconciliation Discharge Plan Discharge Items Patient Disposition: Home - Self-Care Reason For Visit: NEAR SYNCOPE Discharge Diagnosis: Near syncope Diarrhea Electrolyte abnormalities [hypokalemia, hypophosphatemia, hypomagnesemia] Activity: Resume your previous activity Non-emergency contact: Primary Care Provider, Costing Manager and Flanging Machine Operator Call non-emergency contact if: you have any medication questions and your symptoms worsen Follow-up/Referrals: Francheska Paniagua MD [Primary Care Provider] - (Please call PCPs office for appointment within the week) Diet: Carb Consistent or DM2 and Heart Healthy Addtl Attending Provider Instructions: Mrs Armstrong You came to the hospital due to a near fainting episode. You also reported chronic diarrhea You were evaluated and noted to have low electrolytes [low potassium, magnesium]. You were treated with IV fluids and electrolyte repleted. Your Lasix was also held briefly while inpatient. Please resume your Lasix as we discussed but hold dose if diarrhea worsens or feel dehydrated. Your potassium was increased to 20 mEq daily. You are also discharged on oral magnesium. It is very important that you follow-up with the abrasive grinder on scheduled appointment next week. You can use your home imodium as needed for diarrhea till then. Continue follow-up with your animal rides manager as well as a primary doctor. It was a pleasure taking care of you Pending Studies at Discharge: No Stand-Alone Forms: [facility] Local Labs, Smoking Cessation Medications and DC Order Prescriptions: New potassium chloride [Klor-Con M10] 10 mEq Tablet,Er Particles/Crystals 20 meq PO DAILY Qty: 60 RF: 0 magnesium chloride 64 mg tablet,delayed release (DR/EC) 64 mg PO DAILY Qty: 30 RF: 0 Continued calcium polycarbophil [Fiber (calcium polycarbophil)] 625 mg Tablet 1 tab PO QAM Qty: 30 RF: 0 atorvastatin [Lipitor] 20 mg Tablet 20 mg PO DAILY RF: 0 Entresto 49-51 mg Tablet 1 tab PO BID RF: 0 levothyroxine 50 mcg Tablet 50 mcg PO DAILY RF: 0 furosemide [Lasix] 20 mg Tablet 20 mg PO DAILY RF: 0 metformin 500 mg Tablet Extended Release 24 Hr 500 mg PO BID RF: 0 bupropion HCl 300 mg Tablet Extended Release 24 Hr 300 mg PO QAM RF: 0 carvedilol 25 mg tablet 25 mg PO BID RF: 0 glipizide 10 mg tablet extended release 24hr 10 mg PO DAILY RF: 0 ondansetron HCl 4 mg tablet 4 mg PO Q8 PRN (Reason: Nausea) RF: 0 aspirin [Aspirin Low Dose] 81 mg Tablet,Delayed Release (Dr/Ec) 81 mg PO DAILY RF: 0 cholecalciferol (vitamin D3) [Vitamin D3] 25 mcg (1,000 unit) Tablet 25 mcg PO DAILY RF: 0 Centrum Women 18-400 mg-mcg Tablet 1 tab PO DAILY RF: 0 Discontinued potassium chloride 10 mEq Capsule, Extended Release 10 meq PO DAILY RF: 0 Discharge Orders: Discharge Order (Routine); Ordered 09/01/20 Ordered By: Rebecca Archuleta/Other Patient Handouts: Low-Fiber Diet, Healthy Meals for Diabetes Admission Data Admit Date/Time: 08/30/20 19:48 Attending Provider: Rebecca Oliva I. Admit Provider: Sushant Nicolas Primary Care Provider: Francheska Paniagua Other Providers: Sushant Nicolas Other Interventions: Discharge Summary Assessment (RN) Last Done: 09/01/20 11:33
--- NOTE | 2020-09-01 21:07 | Electrocardiogram Report ---
Test Reason : Blood Pressure : / mmHG Vent. Rate : 063 BPM Atrial Rate : 063 BPM P-R Int : 186 ms QRS Dur : 160 ms QT Int : 506 ms P-R-T Axes : 038 -51 125 degrees QTc Int : 517 ms Normal sinus rhythm Left axis deviation Left bundle branch block Abnormal ECG When compared with ECG of 31-AUG-2020 05:18, No significant change was found Confirmed by Harry Reyna ([id number]) on 09/01/2020 9:06:28 PM Referred By: REFERRED SELF Confirmed By:Zion Reyna
== END 2020-09-01 14:00 | disposition home or self-care (01) | DRG 312 ==
LOC: ED 15:46 → SUATTDRO 19:48 → 2S 19:48